=== PATIENT | male | born 1950 | race Caucasian/White ===

== ENCOUNTER 2019-11-01 17:59 | Emergency (ER) | payer OTHER, MEDICARE ==
[~2019-11-01] VITALS: Ht 172.7 cm; Wt 68.6 kg
[2019-11-01 19:52] LABS: BASOPHILS % (AUTO) 0.2 % (0-1); EOSINOPHILS % (AUTO) 0.1 % (0-6); HEMATOCRIT 51.4 % (42.0-52.0); HEMOGLOBIN 17.2 g/dl (14.0-17.9); MEAN CORPUSCULAR HEMOGLOBIN 30.5 PG (27.0-31.0); MEAN CORPUSCULAR HGB CONC 33.4 g/dL (33.0-36.5); MEAN CORPUSCULAR VOLUME 91.3 FL (78-98); MEAN PLATELET VOLUME 8.7 FL (7.4-10.4); MONOCYTES # (AUTO) 1.5 X10'3 (0-0.9); MONOCYTES % (AUTO) 7.2 % (2-12); NEUTROPHILS # (AUTO) 16.7 X10'3 (1.8-7.7); NEUTROPHILS % (AUTO) 82.5 % (42-75); PLATELET COUNT 377 X10'3 (140-440); RED BLOOD COUNT 5.63 X10'6 (4.70-6.10); WHITE BLOOD COUNT 20.3 X10'3 (4.5-11.0)
[2019-11-01 20:17] LABS: ALANINE AMINOTRANSFERASE 27 U/L (12-78); ALBUMIN 3.8 G/DL (3.4-5.0); ALBUMIN/GLOBULIN RATIO 1.1 (1.1-1.5); ALKALINE PHOSPHATASE 68 IU/L (46-116); ANION GAP 14 (8-16); ASPARTATE AMINO TRANSFERASE 12 U/L (10-37); BILIRUBIN,TOTAL 0.6 MG/DL (0.1-1.0); BLOOD UREA NITROGEN 20 MG/DL (7-18); BUN/CREATININE RATIO 22.5 (5.4-32.0); CALCIUM 9.1 MG/DL (8.5-10.1); CHLORIDE 97 MMOL/L (99-107); CREATININE 0.89 MG/DL (0.60-1.10); GLUCOSE 289 MG/DL (70-104); LIPASE 144 U/L (73-393); SODIUM 134 MMOL/L (135-145); TOTAL CARBON DIOXIDE 23.2 MMOL/L (24-32); TOTAL PROTEIN 7.2 G/DL (6.4-8.2); eGFR 85 ML/MIN
--- NOTE | 2019-11-01 20:43 | NUR ---
PT STATES HE STILL CAN'T VOID AFTER THREE CUPS OF WATER. GAVE PT URINE CUP AND SHOWED HIM WE NEED A VERY SMALL SAMPLE. HE STATED HE WILL TRY AGAIN
[2019-11-01 21:02] LABS: CLARITY,URINE CLEAR (Clear); COLOR,URINE YELLOW (Yellow); GLUCOSE, URINE 500 mg/dl (Neg); KETONES,URINE >=80 mg/dl (Neg); LEUKOCYTE ESTERASE ,URINE NEGATIVE (Neg); NITRITES, URINE NEGATIVE (Neg); OCCULT BLOOD,URINE TRACE-INTACT (Neg); PROTEIN,URINE 30 mg/dl (Neg)
[2019-11-01 21:05] LABS: UA COLLECTION TYPE CLN CATCH MIDSTREAM
[2019-11-01 21:07] LABS: BACTERIA,URINE NONE SEEN /HPF (Neg); RBC,URINE 0-2 /HPF (0-2); SQUAMOUS EPITHELIAL CELL,UR FEW /LPF (FEW); WBC,URINE 0-4 /HPF (0-4)
[2019-11-01] MEDS ORDERED: normal saline 1000ML IV soln IVB ONE ×2 (21:15→22:00)
[2019-11-01] MEDS ORDERED: iohexol 300mg/ml 100ml inj. ONE (21:19)
[2019-11-01] MEDS ORDERED: morphine 4 MG/ML inj SYRINge IV ONE (21:45)
[2019-11-01] MEDS ORDERED: ondansetron/PF 4mg/2ml inj IV ONE (21:45)
[2019-11-01] MEDS ORDERED: morphine 10mg/ml inj. IV ONE (21:50)
[2019-11-01] MEDS ORDERED: ONDA4TAB6 PO (22:46)
[2019-11-01] MEDS ORDERED: DICY10CA88 PO (22:46)
[2019-11-01] MEDS ORDERED: famotidine 20mg tablet PO ONE (22:55)
[2019-11-01] MEDS ORDERED: dicyclomine 10 MG capsule PO ONE (22:55)
[2019-11-01] MEDS ORDERED: mag hydrox/Alum hydrox/simeth 30ml oral suspension PO ONE (22:55)
[2019-11-01] MEDS ORDERED: MAG355OR18 PO (23:56)
[2019-11-02 00:09] VITALS: BP 151/74
== END 2019-11-02 00:11 | disposition home or self-care (01) ==
LOC: ER 18:00
DX: R10.30 Lower abdominal pain, unspecified (principal); R11.2 Nausea with vomiting, unspecified; E11.9 Type 2 diabetes mellitus without complications; E03.9 Hypothyroidism, unspecified; M19.90 Unspecified osteoarthritis, unspecified site; F17.200 Nicotine dependence, unspecified, uncomplicated; Z98.890 Other specified postprocedural states; Z79.899 Other long term (current) drug therapy
CPT/HCPCS: 36415; 74177; 80053; 81001; 83690; 85025; 96361; 96374; 96375; 99285; J2270; J2405; J7030; Q9967

== ENCOUNTER 2019-11-11 06:06 | Emergency (ER) | payer OTHER, MEDICARE ==
[~2019-11-11] VITALS: Ht 172.7 cm; Wt 69.1 kg
[~2019-11-11 06:06] MED LIST: DICY10CA88 PO; MAG355OR18 PO; ONDA4TAB6 PO
[2019-11-11] MEDS ORDERED: mag hydrox/Alum hydrox/simeth 30ml oral suspension PO ONE ×2 (06:30→08:05)
[2019-11-11] MEDS ORDERED: normal saline 1000ml 1,000 ML IV ONE ×2 (06:30→07:10)
[2019-11-11] MEDS ORDERED: pantoprazole 40 MG vial IV ONE (06:30)
[2019-11-11] MEDS ORDERED: LIDOcaine Viscous 15ml cup MM ONE (06:30)
[2019-11-11] MEDS ORDERED: famotidine/PF 10 mg/ml inj IV ONE (06:30)
[2019-11-11] MEDS ORDERED: ondansetron/PF 4mg/2ml inj IV ONE (06:30)
[2019-11-11 06:36] LABS: BASOPHILS # (AUTO) 0.1 X10'3 (0-0.2); BASOPHILS % (AUTO) 0.3 % (0-1); EOSINOPHILS % (AUTO) 0 % (0-6); HEMATOCRIT 52.1 % (42.0-52.0); HEMOGLOBIN 17.5 g/dl (14.0-17.9); LYMPHOCYTES # (AUTO) 1.9 X10'3 (1.1-4.8); MEAN CORPUSCULAR HEMOGLOBIN 31.2 PG (27.0-31.0); MEAN CORPUSCULAR HGB CONC 33.5 g/dL (33.0-36.5); MEAN CORPUSCULAR VOLUME 93.1 FL (78-98); MEAN PLATELET VOLUME 8.4 FL (7.4-10.4); MONOCYTES # (AUTO) 1.2 X10'3 (0-0.9); MONOCYTES % (AUTO) 6.2 % (2-12); NEUTROPHILS # (AUTO) 15.6 X10'3 (1.8-7.7); NEUTROPHILS % (AUTO) 83.5 % (42-75); PLATELET COUNT 358 X10'3 (140-440); WHITE BLOOD COUNT 18.7 X10'3 (4.5-11.0)
[2019-11-11 06:48] LABS: ALANINE AMINOTRANSFERASE 35 U/L (12-78); ALBUMIN 4.3 G/DL (3.4-5.0); ALBUMIN/GLOBULIN RATIO 1.1 (1.1-1.5); ALKALINE PHOSPHATASE 80 IU/L (46-116); ANION GAP 18 (8-16); ASPARTATE AMINO TRANSFERASE 14 U/L (10-37); BILIRUBIN,TOTAL 0.7 MG/DL (0.1-1.0); BLOOD UREA NITROGEN 25 MG/DL (7-18); BUN/CREATININE RATIO 20.8 (5.4-32.0); CALCIUM 9.7 MG/DL (8.5-10.1); CHLORIDE 95 MMOL/L (99-107); GLUCOSE 249 MG/DL (70-104); SODIUM 136 MMOL/L (135-145); TOTAL CARBON DIOXIDE 23.1 MMOL/L (24-32); TOTAL PROTEIN 8.2 G/DL (6.4-8.2); eGFR 60 ML/MIN
[2019-11-11 06:50] LABS: LIPASE 465 U/L (73-393); TROPONIN I < 0.04 NG/ML (0.0-0.05)
[2019-11-11] MEDS ORDERED: insulin regular, human 10 units/0.1 ml syringe IV ONE (07:10)
[2019-11-11] MEDS ORDERED: insulin regular, human U-100 3ml vial - multi-dose IV ONE (07:15)
[2019-11-11] MEDS ORDERED: PANT-47 PO (08:06)
[2019-11-11] MEDS ORDERED: MAG355OR18 PO (08:06)
[2019-11-11 08:41] VITALS: BP 141/65
== END 2019-11-11 08:50 | disposition home or self-care (01) ==
LOC: ER 06:07
DX: K29.70 Gastritis, unspecified, without bleeding (principal); E11.9 Type 2 diabetes mellitus without complications; E03.9 Hypothyroidism, unspecified; M19.90 Unspecified osteoarthritis, unspecified site; R11.2 Nausea with vomiting, unspecified; Z98.890 Other specified postprocedural states; Z79.899 Other long term (current) drug therapy
CPT/HCPCS: 36415; 74176; 76700; 80053; 82948; 83690; 84484; 85025; 96361; 96374; 96375; 99285; C9113; J2405; J3490; J7030; J1815

== ENCOUNTER 2019-12-10 16:52 | Emergency (ER) | payer OTHER, MEDICARE ==
[~2019-12-10] VITALS: Ht 172.7 cm; Wt 148.0 kg
[~2019-12-10 16:52] MED LIST changes: +PANT-47 PO
[2019-12-10 18:52] LABS: BASOPHILS % (AUTO) 0.3 % (0-1); EOSINOPHILS # (AUTO) 0.1 X10'3 (0-0.9); EOSINOPHILS % (AUTO) 0.9 % (0-6); HEMATOCRIT 52.9 % (42.0-52.0); HEMOGLOBIN 17.6 g/dl (14.0-17.9); LYMPHOCYTES # (AUTO) 2.1 X10'3 (1.1-4.8); LYMPHOCYTES % (AUTO) 13.2 % (21-51); MEAN CORPUSCULAR HEMOGLOBIN 30.4 PG (27.0-31.0); MEAN CORPUSCULAR HGB CONC 33.2 g/dL (33.0-36.5); MEAN CORPUSCULAR VOLUME 91.7 FL (78-98); MONOCYTES # (AUTO) 1.2 X10'3 (0-0.9); MONOCYTES % (AUTO) 7.5 % (2-12); NEUTROPHILS # (AUTO) 12.1 X10'3 (1.8-7.7); NEUTROPHILS % (AUTO) 78.1 % (42-75); PLATELET COUNT 286 X10'3 (140-440); RED BLOOD COUNT 5.77 X10'6 (4.70-6.10); RED CELL DISTRIBUTION WIDTH 13.6 % (11.5-14.5); WHITE BLOOD COUNT 15.5 X10'3 (4.5-11.0)
[2019-12-10 19:10] LABS: ALANINE AMINOTRANSFERASE 28 U/L (12-78); ALBUMIN 4.7 G/DL (3.4-5.0); ALBUMIN/GLOBULIN RATIO 1.2 (1.1-1.5); ALKALINE PHOSPHATASE 79 IU/L (46-116); ANION GAP 13 (8-16); ASPARTATE AMINO TRANSFERASE 17 U/L (10-37); BILIRUBIN,TOTAL 0.8 MG/DL (0.1-1.0); BLOOD UREA NITROGEN 24 MG/DL (7-18); BUN/CREATININE RATIO 25.8 (5.4-32.0); CALCIUM 9.2 MG/DL (8.5-10.1); CHLORIDE 99 MMOL/L (99-107); CREATININE 0.93 MG/DL (0.60-1.10); GLUCOSE 154 MG/DL (70-104); LIPASE 155 U/L (73-393); POTASSIUM 4.3 MMOL/L (3.5-5.1); SODIUM 137 MMOL/L (135-145); TOTAL CARBON DIOXIDE 24.7 MMOL/L (24-32); TOTAL PROTEIN 8.5 G/DL (6.4-8.2); eGFR 80 ML/MIN
[2019-12-10] MEDS ORDERED: famotidine 20mg tablet PO ONE (20:20)
[2019-12-10] MEDS ORDERED: mag hydrox/Alum hydrox/simeth 30ml oral suspension PO ONE (20:20)
[2019-12-10] MEDS ORDERED: LIDOcaine Viscous 15ml cup MM ONE (20:20)
[2019-12-10] MEDS ORDERED: ondansetron/PF 4mg/2ml inj IV ONE (20:45)
[2019-12-10] MEDS ORDERED: famotidine/PF 10 mg/ml inj IV ONE (21:45)
[2019-12-10] MEDS ORDERED: PANT-47 PO (21:45)
[2019-12-10] MEDS ORDERED: SUCR1TAB34 PO (21:45)
[2019-12-10] MEDS ORDERED: proCHLORperazine 10 MG/2 ml inj IV ONE (21:45)
[2019-12-10 21:48] LABS: CLARITY,URINE CLEAR (Clear); COLOR,URINE YELLOW (Yellow); GLUCOSE, URINE >=1000 mg/dl (Neg); KETONES,URINE >=80 mg/dl (Neg); LEUKOCYTE ESTERASE ,URINE NEGATIVE (Neg); NITRITES, URINE NEGATIVE (Neg); OCCULT BLOOD,URINE TRACE-INTACT (Neg); PROTEIN,URINE TRACE mg/dl (Neg); UROBILINOGEN,URINE 0.2 E.U/dL (0.2-1.0)
[2019-12-10 21:50] LABS: UA COLLECTION TYPE CLN CATCH MIDSTREAM
[2019-12-10 21:54] LABS: BACTERIA,URINE NONE SEEN /HPF (Neg); RBC,URINE 0-2 /HPF (0-2); SQUAMOUS EPITHELIAL CELL,UR FEW /LPF (FEW); WBC,URINE NONE SEEN /HPF (0-4)
[2019-12-10 22:14] VITALS: BP 110/70
== END 2019-12-10 22:27 | disposition home or self-care (01) ==
LOC: ER 16:52
DX: K29.70 Gastritis, unspecified, without bleeding (principal); R11.2 Nausea with vomiting, unspecified; E11.9 Type 2 diabetes mellitus without complications; E03.9 Hypothyroidism, unspecified; M19.90 Unspecified osteoarthritis, unspecified site; Z98.890 Other specified postprocedural states; Z79.899 Other long term (current) drug therapy
CPT/HCPCS: 36415; 80053; 81001; 83690; 85025; 96374; 96375; 99285; J0780; J2405; J3490

== ENCOUNTER 2024-02-22 10:11 | Emergency (ER) | payer OTHER, MEDICARE ==
[~2024-02-22] VITALS: Ht 172.7 cm; Wt 66.8 kg
[~2024-02-22 10:11] MED LIST changes: -MAG355OR18 PO; +SUCR1TAB34 PO
[2024-02-22 10:45] LABS: BASOPHILS # (AUTO) 0.1 X10'3 (0-0.2); BASOPHILS % (AUTO) 0.5 % (0-1); EOSINOPHILS # (AUTO) 0.1 X10'3 (0-0.9); EOSINOPHILS % (AUTO) 1.1 % (0-6); HEMATOCRIT 47.2 % (42.0-52.0); HEMOGLOBIN 15.6 g/dl (14.0-17.9); LYMPHOCYTES # (AUTO) 2.9 X10'3 (1.1-4.8); MEAN CORPUSCULAR HEMOGLOBIN 30.4 PG (27.0-31.0); MEAN CORPUSCULAR HGB CONC 33.1 g/dL (33.0-36.5); MEAN CORPUSCULAR VOLUME 91.7 FL (78-98); MEAN PLATELET VOLUME 8.6 FL (7.4-10.4); MONOCYTES % (AUTO) 8.7 % (2-12); NEUTROPHILS # (AUTO) 7.9 X10'3 (1.8-7.7); NEUTROPHILS % (AUTO) 65.7 % (42-75); PLATELET COUNT 318 X10'3 (140-440); RED BLOOD COUNT 5.15 X10'6 (4.70-6.10); RED CELL DISTRIBUTION WIDTH 13.7 % (11.5-14.5)
[2024-02-22 11:00] LABS: ALANINE AMINOTRANSFERASE 29 U/L (12-78); ALBUMIN 3.8 G/DL (3.4-5.0); ALBUMIN/GLOBULIN RATIO 1.1 (1.1-1.5); ALKALINE PHOSPHATASE 75 IU/L (46-116); ANION GAP 11 (8-16); ASPARTATE AMINO TRANSFERASE 13 U/L (10-37); BILIRUBIN,TOTAL 0.6 MG/DL (0.1-1.0); BLOOD UREA NITROGEN 11 MG/DL (7-18); BUN/CREATININE RATIO 13.4 (10.0-20.0); CALCIUM 9.2 MG/DL (8.5-10.1); CHLORIDE 99 MMOL/L (99-107); CREATININE 0.82 MG/DL (0.60-1.10); GLUCOSE 285 MG/DL (70-104); LIPASE 44 U/L (16-77); POTASSIUM 4.3 MMOL/L (3.5-5.1); SODIUM 136 MMOL/L (135-145); TOTAL CARBON DIOXIDE 25.7 MMOL/L (24-32); TOTAL PROTEIN 7.3 G/DL (6.4-8.2); eCRCL 75 ML/MIN; eGFR > 90 ML/MIN
[2024-02-22 12:54] LABS: BILIRUBIN,URINE NEGATIVE (Neg); CLARITY,URINE SLIGHTLY CLOUDY (Clear); COLOR,URINE YELLOW (Yellow); GLUCOSE, URINE 500 mg/dl (Neg); KETONES,URINE 15 mg/dl (Neg); LEUKOCYTE ESTERASE ,URINE NEGATIVE (Neg); NITRITES, URINE NEGATIVE (Neg); OCCULT BLOOD,URINE NEGATIVE (Neg); PH,URINE 5.5 (4.8-8.0); PROTEIN,URINE 100 mg/dl (Neg); UROBILINOGEN,URINE 0.2 E.U/dL (0.2-1.0)
[2024-02-22 12:59] LABS: UA COLLECTION TYPE VOIDED
[2024-02-22 13:01] LABS: MUCUS STRANDS MANY /LPF (Neg); SQUAMOUS EPITHELIAL CELL,UR FEW /LPF (FEW)
[2024-02-22 13:03] LABS: AMORPHOUS URATES 1+; BACTERIA,URINE FEW /HPF (Neg); WBC,URINE 0-4 /HPF (0-4)
[2024-02-22] MEDS: mag hydrox/Alum hydrox/simeth 30ml oral suspension PO ONE (14:40)
[2024-02-22] MEDS: LIDOcaine 2% Viscous 15ml cup MM PRN (14:40)
[2024-02-22] MEDS: ondansetron/PF 4mg/2ml inj IV ONE (14:41)
[2024-02-22] MEDS: morphine 4 MG/ML inj SYRINge IV ONE (14:41)
[2024-02-22] MEDS: normal saline 1000ML IV soln IVB ONE (14:41)
[2024-02-22 15:31] VITALS: BP 145/78; PULSE 79; RESP 16; TEMP 98.4; O2SAT 96
[2024-02-22] MEDS ORDERED: OMEP40CA21 PO (15:37)
== END 2024-02-22 15:38 | disposition home or self-care (01) ==
LOC: ER 10:11
DX: R10.84 Generalized abdominal pain (principal); L98.498 Non-pressure chronic ulcer of skin of other sites with other specified severity; E11.9 Type 2 diabetes mellitus without complications; E03.9 Hypothyroidism, unspecified; M19.90 Unspecified osteoarthritis, unspecified site; Z98.890 Other specified postprocedural states; Z79.899 Other long term (current) drug therapy
CPT/HCPCS: 36415; 74176; 80053; 81001; 83690; 85025; 96361; 96374; 96375; 99285; J2270; J2405; J7030; 99284

== ENCOUNTER 2025-01-01 11:13 | Inpatient (IN) | payer OTHER, MEDICARE ==
[~2025-01-01] VITALS: Ht 172.7 cm; Wt 70.0 kg
[2025-01-01] VITALS (14 sets, daily range): BP systolic 78–165; BP diastolic 44–96; PULSE 75–126; RESP 14–20; O2SAT 89–100
[~2025-01-01 11:13] MED LIST changes: +LIDOcaine 2% (20 mg/ml) 5ml cardiac syringe ONE; +adenosine 3mg/ml 2ml vial IV ONE; +calcium chloride 100 MG/1 ML inj IV ONE; +dextrose 50%-water 50ml dispensing syringe IV ONE; +epiNEPHrine 0.1mg/ml 10ml syringe ONE; +etomidate 2mg/ml inj. ONE; +naloxone 2mg/2ml inj ONE; +potassium Cl 2 mEq/ml inj IV ONE; +rocuronium 10mg/ml inj IV ONE; +sod chloride 0.9% 10ml flush syringe IV ONE
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
[2025-01-01 11:59] LABS: MEAN PLATELET VOLUME 8.7 FL (7.4-10.4); RED CELL DISTRIBUTION WIDTH 14.0 % (11.5-14.5)
[2025-01-01 12:05] LABS: CREATININE 2.84 MG/DL (0.60-1.10); TOTAL CARBON DIOXIDE 16.4 MMOL/L (24-32); eCRCL 22 ML/MIN; eGFR 22 ML/MIN
[2025-01-01] MEDS ORDERED: dextrose 50%-water 50ml dispensing syringe IV PRN (12:20)
[2025-01-01] MEDS: normal saline 1000ml 1,000 ML IV ONE ×2 (12:42→12:43)
[2025-01-01] MEDS ORDERED: magnesium Cl slow-release 64mg tablet PO PRN (12:45)
[2025-01-01] MEDS ORDERED: potassium Cl 20 mEq SR tablet PO PRN (12:45)
[2025-01-01] MEDS ORDERED: magnesium sulf-water 2g/50mL 50 ML IV PRN (12:45)
[2025-01-01] MEDS ORDERED: potassium Cl 40MEQ/1/2NS 520ml 520 ML IV PRN (12:45)
[2025-01-01] MEDS ORDERED: magnesium sulf-water 4G/100mL 100 ML IV PRN (12:45)
[2025-01-01] MEDS: INSULIN LISPRO 100 UNIT/ML INSULN.PEN MULTI-DOSE SQ SCH (13:00)
[2025-01-01 13:05] LABS: PHOSPHORUS 3.3 MG/DL (2.3-4.5)
[2025-01-01] MEDS: fentaNYL/PF 50MCG/1 ML 2ML syringe IV ONE (13:12)
[2025-01-01] MEDS: potassium Cl 20 mEq SR tablet PO PRN (13:14)
[2025-01-01] MEDS: ringers solution, lacted 1,000 ML IV SCH ×2 (13:20→20:48)
[2025-01-01] MEDS: Insulin Reg/NS 100units/100mL 100 ML IV SCH (13:42)
[2025-01-01] MEDS: etomidate 2mg/ml inj. IV ONE (14:43)
[2025-01-01] MEDS: rocuronium 10mg/ml inj IV ONE (14:44)
[2025-01-01] MEDS ORDERED: propofol 1000mg/100ml bottle 100 ML IV SCH (14:50)
[2025-01-01] MEDS: ringers solution, lacted 1,000 ML IV ONE ×4 (14:56→16:10)
[2025-01-01] MEDS: propofol 1000mg/100ml bottle 100 ML IV ONE (14:56)
[2025-01-01] MEDS: propofol 1000mg/100ml bottle 100 ML IV SCH (14:57)
--- NOTE | 2025-01-01 14:57 | ELECTROCARDIOGRAPH REPORT ---
[facility] Test Date: 2025-01-01 Test Time: 14:51:45 Pat Name: BOB QUINN Department: EMERGENCY ROOM Room: [facility] 2010 Gender: M [employer]: TYREL : 1950 Requested By: MAISHA GONZALEZ Order Number: [id number] Reading MD: Dr. DEREK Dunlap Measurements Intervals [place] Rate: 127 P: 46 MO: 160 QRS: 1 QRSD: 98 T: 182 QT: 341 QTc: 496 Interpretive Statements Sinus tachycardia Ventricular premature complex Borderline low voltage, extremity leads Abnormal R-wave progression, early transition Repol abnrm suggests ischemia, diffuse leads Electronically Signed On 01-02-2025 14:42:[address] DEREK Dunlap Please click the below link to view image of tracing.
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
[2025-01-01 15:20] LABS: ABG BASE EXCESS -25.4 mmol/L (-2.0-3.0); ABG HCO3 10.7 mmol/L (21.0-28.0); ABG OXYGEN SATURATION 99.7 % (94.0-98.0); ABG PCO2 (T) 72.0 mmHg (35.0-48.0); ABG PH (T) 6.791 (7.350-7.450); ABG PO2 (T) 504.2 mmHg (83.0-108.0); ALLEN'S TEST POSITIVE; FCOHb 0.3 % (0.5-1.5); FHHb 0.3 % (0.0-5.0); FIO2 100.0 mmHg/%; FMetHb 0.4 % (0.0-1.5); FO2Hb 99.0 % (94.0-98.0); MODE VENT - AC PRVC; PATIENT TEMPERATURE 37.0; PEEP 5 cm H2O; RESPIRATORY RATE 16 b/min; TIDAL VOLUME 350 mL; TOTAL HEMOGLOBIN 16.1 G/dl (13.5-17.5)
--- NOTE | 2025-01-01 15:20 | RADIOLOGY REPORT ---
EXAM: DI CHEST,SINGLE VIEW Indication: POST INTUBATION Technique: Single frontal view of the chest was obtained Comparison: None FINDINGS: Lines and Tubes: Endotracheal tube projects 3.7 cm above the janelle. Lungs: No focal consolidation. Pleura: No effusion. No pneumothorax. Cardiomediastinal contours: Unremarkable. Atherosclerotic vascular calcifications of the thoracic aorta are noted. Bones: No acute osseous abnormality. IMPRESSION: No acute cardiopulmonary disease.
--- NOTE | 2025-01-01 15:24 | HISTORY AND PHYSICAL ---
History & Physical Providers to Chief complaint, nausea vomiting associated with abdominal pain, chronic constipation exacerbation ~ History of Present Illness Reason for Admit\Complaint: As above History of Present Illness This is a 74 years old male with history of diabetes mellitus type 2, chronic kidney disease, hypothyroidism, history of thyroid cancer, osteoarthritis, hernia, hypoalbuminemia, hepatic steatosis, history of peptic ulcer disease, history of GERD, esophagitis BPH a right knee TKA, bilateral pleural effusion small, chronic constipation, presented today to emergency department chief complaint nausea vomiting associated with abdominal pain; in addition this is the patient who presented to the ED due to abdominal pain and nausea vomiting. He reported he had intermittent abdominal pain, last one was four months ago which subside without any hospitalization and medication, however this time he reported abdominal pain started four days ago, location was in lower abdomen, and was constant and severity 10 of 10 and now he reported generalized abdominal pain and associated with nausea vomiting. He went to [facility] last evening and received medication for nausea and pain however his symptoms did not subside He denied chest pain shortness of breaths, fever or chills, changing in urinary habits , he admits on chronic constipation in exacerbation for the last two weeks associated with unable to pass flatus currently, in emergency department he was evaluated by physician was diagnosed with DKA, acute pancreatitis, perforated viscous decision was made to admit patient for further evaluation and treatment. No additional complaint or concern. Started on DKA protocol including IV insulin infusion, antibiotics, and correct electrolytes. Allergies: Coded Allergies: No Known Allergies (Unverified , 02/22/24) Active prescriptions I reviewed reconciled Home Medications Home Medications Active Carafate (Sucralfate) 1 Gm Tablet 1 Tab PO Q6H PRN 30 Days PROTONIX tablet (Pantoprazole Sodium) 40 Mg Tablet.dr 1 Tab PO DAILY 30 Days PROTONIX tablet (Pantoprazole Sodium) 40 Mg Tablet.dr 1 Tab PO DAILY 30 Days Bentyl* (Dicyclomine HCl) 10 Mg Capsule 1 Cap PO Q12H 5 Days Zofran (Ondansetron Hcl) 4 Mg Tablet 1 Tab PO Q12H PRN 5 Days Past Medical History Past Medical History As in HPI Past Surgical History Surgical History Comment As in HPI has history of abdominal surgery as well Past Social History Social History Comment Deny illicit drug abuse tobacco alcohol use live with the family good social support Health Maintenance Health Maintenance Noncontributory ROS ROS I review of systems Constitutional : no fever , no chills, or weakness. No diaphoresis. Allergic/Immunologic, no lymphadenopathy, no hives, no skin eruptions. Eyes, no recent visual changes, no eye pain, no photophobia. Ears, nose, mouth, throat, no sore throat, no nosebleed, no ear pain. Cardiovascular, no palpitations, skipped beats, chest pain, no peripheral edema, Respiratory, no dyspnea, orthopnea, cough, hemoptysis, chest wall pain. Gastrointestinal, positive for abdominal pain, nausea, vomiting, constipation , no diarrhea. : no dysuria, hematuria, pelvic pain, urethral d/c. Endocrine, no polyuria, polydipsia, recent unintentional weight gain or loss. Hematologic/Lymphatic, no petechiae, no enlarged lymph nodes, no bone pain. Integumentary, no rash, no skin lesions, Musculoskeletal, no muscle aches, or pain, no muscle cramps, no recent change in gait Neurological, no dizziness, no headache, no syncope, no paresthesia. Psychiatric, no delusions, visual hallucinations, or hearing hallucinations. ROS - in rest is as in HPI. Exam Vitals: Vital Signs Date Time Temp Pulse Resp B/P (MAP) Pulse Ox O2 Delivery O2 Flow Rate FiO2 01/01/25 15:05 126 16 100 100 01/01/25 14:57 142/83 01/01/25 13:43 0 01/01/25 11:19 97.7 Vital signs, stable ,afebrile. Pulse Oximetry reflects adequate oxygenation. BMI is 23, weight 70 kg General: well developed, well nourished. Awake , alert, and oriented x4, resting comfortably in the bed, in no acute distress . Skin: Warm, dry, no pallor, no rash or petechiae. HEENT: Atraumatic, normocephalic, EOMI, anicteric sclera B; pink conjunctiva; PERRLA, normal oropharynx, moist oral and nasal mucosa. Tympanic membrane , nose , throat clear. Neck: Trachea midline. Supple, full range of motion, no JVD, bruit , hepatojugular reflex , lymphadenopathy or masses, or other lesions Cardiac: Regular rhythm, regular rate no murmurs, rubs, or gallops. Normal S1 and S2, no S3 noticed. PMI is normal. Respiratory: Equal breath sounds bilaterally, no tachypnea; lungs clear to auscultation bilaterally, no wheezing ,rub or rales, or crackles. Chest wall is symmetric and without deformity. No signs of trauma. Chest wall is nontender. No signs of respiratory distress. Resonance is normal upon percussion bilaterally. Gastrointestinal: Abdomen symmetric, distended, soft, tender to palpation diffusely, active bowel sounds x4 quadrant. no hepatosplenomegaly , no masses , no bruit, no flank pain bilaterally. No voluntary guarding, rebound, or rigidity. No tenderness to percussion. No pulsatile masses. Equal femoral pulses. No Linn's sign or McBurney point tenderness. Back; no CVA tenderness bilaterally, no deformities. Neck and back are without deformity as well. No tenderness noted on palpation of the spinous processes. Spinous processes are midline. Cervical, thoracic, and lumbar paraspinal muscles are not tender and are without spasm. : normal external genitalia, without lesions, swelling, masses or tenderness. Musculoskeletal: Extremities, normal range of motion, non-tender, muscle strength 5/5 x 4. Negative Homans signs bilaterally on lower extremity. Distal pulses full symmetrical, no clubbing, cyanosis , edema. Neurological: Speech is clear, alert, and oriented x 4. No motor or sensory deficit, deep tendon reflexes normal, cerebellar intact. Cranial nerves II-XII intact. Psych: Alert and or appropriate, normal affect. Vascular: Good distal pulses, which are equal x4; capillary refill less than 2 seconds. Lymphatic, no lymphadenopathy. Diagnostic Data Last Recorded Lab Results: 01/01/25 1136 01/01/25 1136 Advance Care Planning Advanced Care plannin - 30 Minutes Additional Plan Assessment History of peptic ulcer disease, esophagitis, GERD, in exacerbation Perforated viscus Sepsis Diabetes mellitus type 2 poor control DKA Acute pancreatitis Chronic constipation in exacerbation Hyponatremia Acute renal failure Additional comorbidities, hypoalbuminemia, hepatic steatosis, BPH, bilateral pleural effusion trace, history of right knee TKA, history of abdominal surgery, chronic kidney disease, hypothyroidism, history of thyroid cancer, ventral hernia, hypoalbuminemia, hepatic steatosis, Plan Correct electrolytes, IV fluids On DKA protocol IV insulin infusion Additional lab work pending IV antibiotics IV Protonix Antiemetics, pain control IV p.o. analgesics Reconciled home medications DVT gastropathy prophylaxis addressed Addendum, in emergency department patient developed acute cardiorespiratory arrest, ACL S protocol followed, patient achieved ROSC, intubated now, we will be transferred to ICU for further evaluation and treatment. Sepsis Screening Reassessment Date: Jan 01, 2025 Date of Service: Jan 01, 2025 Billing Provider: KAILYN GRIMES MD Common Visit Codes: 83366-[id number] INP/OBS CARE (HIGH) Secondary Visit Codes: 18338-[id number] CARE PLAN 30 MINUTES KAILYN GRIMES MD Jan 01, 2025 15:24
[2025-01-01] MEDS: CefTRIAXone/D5W-Rocephin 1gm 50 ML IV ONE (15:38)
[2025-01-01] MEDS: sodium bicarbonate (8.4%) 1 mEq/ml syringe IV ONE (15:40)
[2025-01-01] MEDS: ringers solution, lacted 1,000 ML IV STA (16:11)
[2025-01-01] MEDS: NORepinephrine 8mg/ 250ml NS 250 ML IV SCH (16:27)
[2025-01-01 16:48] LABS: BANDS% (MANUAL) 29 % (0-10); LYMPHOCYTES % (MANUAL) 18 % (21-51); METAMYLEOCYTES% (MANUAL) 2 % (0-0); MONOCYTES % (MANUAL) 6 % (2-12); NEUTROPHILS % (MANUAL) 44 % (42-75)
[2025-01-01 16:49] LABS: LARGE PLATELETS FEW; MYELOCYTES % (MANUAL) 1 % (0-0); PLATELET ESTIMATE NORMAL
[2025-01-01] MEDS ORDERED: heparin 10,000 units/1 ML INJ ONE (17:09)
[2025-01-01 17:36] LABS: MEAN PLATELET VOLUME 8.8 FL (7.4-10.4); RED CELL DISTRIBUTION WIDTH 14.1 % (11.5-14.5)
--- NOTE | 2025-01-01 17:37 | PROGRESS NOTE ---
Progress Note ID Providers to CC ~ Progress Note Progress Note: pt seen and examined-findings consistent with perforated viscus and ALI LLE post code-pt needs ex lap and LLE embolectomy-discussed procedure including risks/benefits/alternatives with SUN LEE MD Jan 01, 2025 17:37
[2025-01-01] MEDS ORDERED: vasoPRESSIN 20 units/ml inj. ONE (17:58)
[2025-01-01 18:01] LABS: CREATININE 2.03 MG/DL (0.60-1.10); TOTAL CARBON DIOXIDE 19.3 MMOL/L (24-32); eCRCL 30 ML/MIN; eGFR 32 ML/MIN
[2025-01-01] MEDS: VASOPRESSIN 20 UNITS/NS 100mL 100 ML IV SCH (18:05)
[2025-01-01] MEDS ORDERED: sodium bicarbonate 1 mEq/ml 50ml vial IV ONE (18:08)
[2025-01-01] MEDS ORDERED: rocuronium 10mg/ml inj IV ONE (18:08)
--- NOTE | 2025-01-01 18:24 | VASCULAR REPORT ---
Indication: Cold left foot Technique: Real- time ultrasound images of the left lower extremity with grayscale, color, and spectral wave Doppler. 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 Biphasic/triphasic waveform left SFA, popliteal artery. No flow left anterior tibial artery. Biphasic waveform left posterior tibial artery. Scattered atherosclerotic calcification disease. Peak systolic velocities are as follows (in cm/s): Left: Common femoral artery: 95 Profunda femoris: 32 Proximal superficial femoral: 55 Mid superficial femoral artery: 50 Distal superficial femoral artery: 33 Popliteal artery: 43 Posterior tibial artery: 10 Anterior tibial artery: No flow Possible reversal flow in the left peroneal artery. Impression: Occlusion of the left anterior tibial artery. Markedly decreased velocity left posterior tibial artery consistent with hemodynamically significant stenosis /occlusion. Correlate to exclude acute thromboembolic etiology given these findings.
[2025-01-01 18:33] LABS: ABG BASE EXCESS -5.2 mmol/L (-2.0-3.0); ABG HCO3 23.9 mmol/L (21.0-28.0); ABG OXYGEN SATURATION 99.4 % (94.0-98.0); ABG PCO2 (T) 58.7 mmHg (35.0-48.0); ABG PH (T) 7.217 (7.350-7.450); ABG PO2 (T) 213.3 mmHg (83.0-108.0); FCOHb 0.6 % (0.5-1.5); FHHb 0.6 % (0.0-5.0); FIO2 96.0 mmHg/%; FMetHb 0.3 % (0.0-1.5); FO2Hb 98.5 % (94.0-98.0); MODE or; PATIENT TEMPERATURE 35.0; TOTAL HEMOGLOBIN 12.8 G/dl (13.5-17.5)
[2025-01-01] MEDS: FENTANYL-0.9 % NACL/PF 100 ML IV SCH (18:42)
[2025-01-01] MEDS: FENTANYL-0.9 % NACL/PF 100 ML ONE (18:42)
[2025-01-01] MEDS ORDERED: albumin (Human) 5% 250ml 250 ML IV ONE (18:47)
[2025-01-01] MEDS ORDERED: midazolam 1 mg/ML 2ml injection ONE (18:58)
--- NOTE | 2025-01-01 19:24 | OPERATIVE REPORT ---
Operative Report Providers to CC ~ Date of Procedure: Jan 01, 2025 Pre-Operative Diagnosis: perforated viscus Post-Operative Diagnosis SAME as PRE-Op Procedure Performed ex lap/small bowel resection Surgeon: jimbo harris Anesthesiologist: Delia Lopez Type of Anesthesia: General Findings: perforated proximal jejunum/ischemic small bowel/extensive contamination Estimated Blood Loss: 200 ml Specimen Removed: proximl jejunum SUN LEE MD Jan 01, 2025 19:24
[2025-01-01 19:27] LABS: ABG BASE EXCESS -8.8 mmol/L (-2.0-3.0); ABG HCO3 19.4 mmol/L (21.0-28.0); ABG OXYGEN SATURATION 99.8 % (94.0-98.0); ABG PCO2 (T) 43.5 mmHg (35.0-48.0); ABG PH (T) 7.246 (7.350-7.450); ABG PO2 (T) 325.0 mmHg (83.0-108.0); FCOHb 0.7 % (0.5-1.5); FHHb 0.2 % (0.0-5.0); FIO2 80.0 mmHg/%; FMetHb 0.3 % (0.0-1.5); FO2Hb 98.8 % (94.0-98.0); MODE PRVC; PATIENT TEMPERATURE 33.4; PEEP 5 cm H2O; RESPIRATORY RATE 16 b/min; TIDAL VOLUME 550 mL; TOTAL HEMOGLOBIN 13.5 G/dl (13.5-17.5)
[2025-01-01 19:41] LABS: MEAN PLATELET VOLUME 8.1 FL (7.4-10.4); RED CELL DISTRIBUTION WIDTH 13.5 % (11.5-14.5)
[2025-01-01 19:48] LABS: INR 2.2 INR
--- NOTE | 2025-01-01 19:51 | RADIOLOGY REPORT ---
EXAM: DI CHEST,SINGLE VIEW HISTORY: return from OR TECHNIQUE: 1 view of the chest COMPARISON: DI CHEST,SINGLE VIEW on DOS: 01/01/25 FINDINGS/IMPRESSION: LUNGS: No pleural effusion, consolidation, or pneumothorax . Peripheral interstitial edema. MEDIASTINUM: Unremarkable BONES: No acute osseous abnormality OTHER: Endotracheal tube 4.3 cm above the janelle. Enteric tube and right central venous catheter unchanged
[2025-01-01 20:10] LABS: APTT 86 SECONDS (22-32)
[2025-01-01 20:11] LABS: CREATININE 1.79 MG/DL (0.60-1.10); PHOSPHORUS 2.8 MG/DL (2.3-4.5); TOTAL CARBON DIOXIDE 20.4 MMOL/L (24-32); eCRCL 35 ML/MIN; eGFR 37 ML/MIN
[2025-01-01] MEDS: albumin (Human) 5% 250ml 250 ML IV ONE ×2 (20:14→20:18)
[2025-01-01 20:37] LABS: BANDS% (MANUAL) 41.0 % (0-10); LYMPHOCYTES % (MANUAL) 30.0 % (21-51); METAMYLEOCYTES% (MANUAL) 2.0 % (0-0); MONOCYTES % (MANUAL) 10.0 % (2-12); NEUTROPHILS % (MANUAL) 17.0 % (42-75); PLATELET ESTIMATE NORMAL
[2025-01-01 20:40] LABS: ISTAT ANION GAP 13.0 (8-12); ISTAT BUN 31.0 mg/dL (7-18); ISTAT CL 104.0 mmol/L (99-107); ISTAT CREATININE 1.4 mg/dL (0.8-1.3); ISTAT GLUCOSE 130.0 mg/dL (70-104); ISTAT HGB 10.9 g/dl (14.0-17.9); ISTAT Hct 32.0 %PCV (42-52); ISTAT IONIZED CALCIUM 1.07 mmol/L (1.03-1.32); ISTAT NA 140.0 mmol/L (135-145); ISTAT TOTAL CO2 23.0 mmol/L (24-32); ISTAT eGFR 49.0 ML/MIN; POC BUN/CREATININE RATIO 22.1 (5.4-32.0)
[2025-01-01] MEDS: midazolam 100mg in NS 100ml 100 ML IV SCH (20:47)
[2025-01-01] MEDS: albumin (Human) 5% 250ml 250 ML IV PRN ×2 (20:47→22:49)
[2025-01-01 21:20] LABS: ISTAT K CONFIRMATION 2.9 mmol/L
[2025-01-01 21:28] LABS: ISTAT K 2.8 mmol/L (3.5-5.1)
[2025-01-01] MEDS: piperacillin/tazo 3.375gm/50ml 50 ML IV SCH (23:15)
[2025-01-02] VITALS (36 sets, daily range): BP systolic 89–178; BP diastolic 38–70; PULSE 82–139; RESP 18–27; O2SAT 89–100
[2025-01-02 00:20] LABS: ABG BASE EXCESS -10.8 mmol/L (-2.0-3.0); ABG HCO3 13.7 mmol/L (21.0-28.0); ABG OXYGEN SATURATION 92.2 % (94.0-98.0); ABG PCO2 (T) 26.4 mmHg (35.0-48.0); ABG PH (T) 7.332 (7.350-7.450); ABG PO2 (T) 67.6 mmHg (83.0-108.0); FCOHb 0.3 % (0.5-1.5); FHHb 7.8 % (0.0-5.0); FIO2 60.0 mmHg/%; FMetHb 0.3 % (0.0-1.5); FO2Hb 91.6 % (94.0-98.0); MODE VENT - SIMV; PATIENT TEMPERATURE 36.9; PEEP 5 cm H2O; RESPIRATORY RATE 18 b/min; TIDAL VOLUME 550 mL; TOTAL HEMOGLOBIN 10.5 G/dl (13.5-17.5)
[2025-01-02 00:41] LABS: MEAN PLATELET VOLUME 8.6 FL (7.4-10.4); RED CELL DISTRIBUTION WIDTH 13.0 % (11.5-14.5)
[2025-01-02] MEDS: ringers solution, lacted 1,000 ML IV SCH (03:12)
[2025-01-02 03:24] LABS: ABG BASE EXCESS -4.0 mmol/L (-2.0-3.0); ABG HCO3 21.1 mmol/L (21.0-28.0); ABG OXYGEN SATURATION 91.0 % (94.0-98.0); ABG PCO2 (T) 35.9 mmHg (35.0-48.0); ABG PH (T) 7.378 (7.350-7.450); ABG PO2 (T) 55.8 mmHg (83.0-108.0); FCOHb 0.6 % (0.5-1.5); FHHb 8.9 % (0.0-5.0); FIO2 55.0 mmHg/%; FMetHb 0.3 % (0.0-1.5); FO2Hb 90.2 % (94.0-98.0); MODE prvc; PATIENT TEMPERATURE 35.3; PEEP 5 cm H2O; RESPIRATORY RATE 18 b/min; TIDAL VOLUME 550 mL; TOTAL HEMOGLOBIN 12.0 G/dl (13.5-17.5)
--- NOTE | 2025-01-02 03:34 | OPERATIVE REPORT ---
DATE OF SURGERY: 01/01/2025 DICTATING PHYSICIAN: Dre Virk MD PREOPERATIVE DIAGNOSES: Perforated viscus with hypotension and sepsis. POSTOPERATIVE DIAGNOSES: Perforated viscus with hypotension and sepsis. PROCEDURES PERFORMED: Exploratory laparotomy. Small bowel resection. Colonic decompression. SURGEON: Dre Virk MD. VEHICLE BODY SANDER: Herman. ANESTHESIA: General/Dr. Mobley. DRAINS: Hernesto x1. INDICATIONS FOR OPERATION: A 74-year-old male who presented to the ER complaining of abdominal pain, lack of BM, apparently had a CAT scan, which revealed a perforated viscus. The patient coded in the ED. Required 6 minutes of CPR. Surgical intervention was subsequently requested. The patient was started on Levophed in the ER via peripheral IV to maintain blood pressure and taken to the OR emergently after discussion was had with the . INTRAOPERATIVE FINDINGS: The patient had a large hole in the anteromedial surface of the proximal jejunum just distal to the ligament of Treitz. Proximal small bowel is ischemic. Given the proximal small bowel ischemia, a decision was made for a planned second-look operation to establish GI continuity. DESCRIPTION OF PROCEDURE: The patient was placed supine on the operating table. After induction of general anesthesia, the patient required line placement per Anesthesia including a central line and arterial line. The abdomen was then prepped and draped. The abdomen was entered through midline incision to explore. There was some contamination in the peritoneal cavity. The colon was then carefully examined from the right colon to the distal sigmoid without evidence of perforation. A small colotomy was then made and the colon was decompressed and the colotomy was closed with TA30. The small bowel was then run through the Treitz to the ileocecal valve. There was a large hole in the anteromedial surface of the proximal jejunum distal to the ligament of Treitz. There was some patchy ischemia in the proximal jejunum as well extending distally. The splenic flexure was immobilized. The ligament of Treitz was divided for a short distance to facilitate ____ of the segment of bowel with perforation. The ____ was divided via a Endo-JOÃO proximally and a JOÃO 75 distally. ____. The small bowel again remained to have some patchy ischemia, but no evidence of serenity necrosis. ____ resection was done. He would be taken back for a planned second-look operation in 24 hours. The abdomen was irrigated with a large amount of antibiotic-containing solution. A drain was then placed through a separate stab incision. The skin was closed with #2-0 nylon with this patient having a planned second-look operation in 24 hours. A dressing was applied. The patient was transferred to the ICU in critical condition. Dre Virk MD TID: [id number] RECEIPT: [id number] KB/CATHERINE
--- NOTE | 2025-01-02 06:00 | RADIOLOGY REPORT ---
CHEST RADIOGRAPH Indication: eval ett/lines Technique: Single frontal view of the chest was obtained COMPARISON: DI CHEST,SINGLE VIEW on DOS: 01/01/25, DI CHEST,SINGLE VIEW on DOS: 01/01/25 FINDINGS: Lines and Tubes: Endotracheal tube, enteric catheter, and right central venous catheter are present and in satisfactory position. Lungs: Clear. Pleura: No effusion. No pneumothorax. Cardiomediastinal contours: Unremarkable. Bones: Unremarkable. IMPRESSION: Lines and tubes in satisfactory position. No significant interval change.
[2025-01-02 06:23] LABS: RED CELL DISTRIBUTION WIDTH 13.1 % (11.5-14.5)
[2025-01-02 06:26] LABS: MEAN PLATELET VOLUME 9.0 FL (7.4-10.4)
[2025-01-02 06:28] LABS: CREATININE 1.34 MG/DL (0.60-1.10); INR 2.3 INR; PHOSPHORUS 2.9 MG/DL (2.3-4.5); TOTAL CARBON DIOXIDE 23.2 MMOL/L (24-32); eCRCL 46 ML/MIN; eGFR 52 ML/MIN
[2025-01-02 06:46] LABS: APTT 122 SECONDS (22-32)
--- NOTE | 2025-01-02 06:51 | ELECTROCARDIOGRAPH REPORT ---
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 DEREK Dunlap Measurements Intervals Braddock Rate: 87 P: 0 AR: 0 QRS: 29 QRSD: 108 T: 27 QT: 380 QTc: 457 Interpretive Statements Accelerated junctional rhythm Incomplete left bundle branch block Low voltage, precordial leads Electronically Signed On 01-02-2025 14:41:[address] DEREK Dunlap Please click the below link to view image of tracing.
[2025-01-02] MEDS ORDERED: iohexol 350 MG/ML 50ML vial IV ONE (07:28)
[2025-01-02 08:47] LABS: PLATELET ESTIMATE NORMAL
[2025-01-02 08:58] LABS: BANDS% (MANUAL) 44.0 % (0-10); LYMPHOCYTES % (MANUAL) 33.0 % (21-51); METAMYLEOCYTES% (MANUAL) 4.0 % (0-0); MONOCYTES % (MANUAL) 5.0 % (2-12); NEUTROPHILS % (MANUAL) 14.0 % (42-75)
--- NOTE | 2025-01-02 09:23 | CONSULTATION ---
DATE OF CONSULTATION: 01/01/2025 DICTATING PHYSICIAN: Dre Virk MD REASON FOR CONSULTATION: Perforated viscus on CT scan. HISTORY OF PRESENT ILLNESS: The patient is a 74-year-old male with a history of diabetes, chronic kidney disease, hypothyroidism, thyroid cancer, osteoarthritis, peptic ulcer disease, and GERD. He presented to the ER with complaints of abdominal pain [facility] The patient reportedly had not had a bowel movement in 2 weeks. While in the ER, he had a large bowel movement and reportedly became bradycardic. Question pulseless, CPR was initiated. The patient had 2 rounds of epinephrine from the ER nurse as well as chest compressions and regained vital signs and was progressively intubated. Surgical evaluation was requested regarding the perforated viscus. The patient did not provide any additional history. His history was taken from the patient's who states he has no history of heart disease. No history of vascular disease. He has been not feeling well for the past few weeks. He has been able to do his activities of daily life without difficulty. PAST MEDICAL HISTORY: Significant for diabetes, chronic kidney disease, hypothyroidism, thyroid cancer, osteoarthritis, hepatic steatosis, peptic ulcer disease, history of GERD, esophagitis, BPH. PAST SURGICAL HISTORY: Includes right total knee replacement and umbilical hernia repair per his . HOME MEDICATIONS: Include Carafate, Protonix, Ventolin, Zofran. ALLERGIES: None. SOCIAL HISTORY: No tobacco or alcohol use. REVIEW OF SYSTEMS: Unobtainable. PHYSICAL EXAMINATION: GENERAL: Well-nourished, thin male, currently intubated, sedated with propofol and fentanyl. VITAL SIGNS: Blood pressure 90/60. Heart rate is 122. HEART: Heart exam is tachycardic. LUNGS: Diminished breath sounds bilaterally. ABDOMEN: Quite distended. He has palpable femoral pulses bilaterally. EXTREMITIES: Left leg is cool with diminished pedal pulses. LABORATORY DATA: Labs included WBC 4.1, hematocrit of 48, platelet count of 242, 29 bands in the differential. Chemistries from 11:30 include sodium 130, potassium 3.4, BUN and creatinine 42 and 2.8, glucose 606, magnesium 4.7. LFTs were unremarkable. Procalcitonin 37. Lactic acid level was 8.9 at 11:36 and increased to 12.9 at 02:45. Blood gas at 1514: PH of 7.69, PCO2 of 72, PO2 of 504. IMAGING STUDIES: CT abdomen and pelvis reveals a large amount of free fluid and free air consistent with perforated viscus and dilated colon. Ultrasound reveals occlusion of the left anterior tibia and decreased velocity of the left posterior tibial. IMPRESSION: * Acute abdomen secondary to perforated viscus. * Respiratory failure with severe respiratory acidosis. * Question of left leg ischemia. * Sepsis. * Diabetic ketoacidosis. * Chronic kidney disease. * Hypothyroidism. * Thyroid cancer. * Osteoarthritis. * Peptic ulcer disease. * History of gastroesophageal reflux disease. RECOMMENDATIONS: * Correction of respiratory acidosis. * IV antibiotics. * Emergent laparotomy. * Check cardiac echocardiogram. Dre Virk MD TID: [id number] RECEIPT: [id number] TAE/RAJINDER
--- NOTE | 2025-01-02 11:24 | RADIOLOGY REPORT ---
CLINICAL HISTORY: post code, poor neuro exam TECHNIQUE: Helical scanning was performed of the head from the skull base to the vertex. Multiplanar reconstructions were performed. This exam was performed according to our departmental dose optimization program. Up-to-date CT equipment and radiation dose reduction techniques are utilized as appropriate. CTDI 66 DLP 1283 COMPARISON: None FINDINGS: Evaluation is limited due to patient motion artifact. There is no evidence for acute intracranial hemorrhage, acute ischemic changes, mass, mass effect, or extra-axial fluid collection. There is no hydrocephalus or midline shift. There is no effacement of the cerebral sulci and basal subarachnoid cisterns. The kurtz-white matter differentiation is well maintained. The imaged paranasal sinuses are clear. IMPRESSION: Limited exam with no definite acute intracranial abnormality seen.
[2025-01-02] MEDS ORDERED: ACET325T55 PO (11:40)
[2025-01-02] MEDS ORDERED: ATOR10TA70 PO (11:40)
[2025-01-02] MEDS ORDERED: ONDA-243 PO (11:40)
[2025-01-02] MEDS ORDERED: ASPI81TA52 PO (11:40)
[2025-01-02] MEDS ORDERED: HYDR71PA TP (11:40)
[2025-01-02] MEDS ORDERED: GABA300C PO (11:40)
[2025-01-02] MEDS ORDERED: GLIP10TA18 PO (11:40)
[2025-01-02] MEDS ORDERED: SITA100T15 PO (11:40)
[2025-01-02] MEDS ORDERED: FLUT16SP BOTHNARES (11:40)
--- NOTE | 2025-01-02 13:51 | [facility] NEURO CONSULT REPORT ---
[facility] Procedure Note [facility] Procedure Note Consult [facility] Note # Demographics Consult Type: General Neurology Patient Location: Inpatient First Name: Dax Last Name: Rafat Date of : 1950 Age: 74 Gender: Male Facility: [facility] Time of Initial Page (): 01/02/2025 11:28 First Contact with Site (): 01/02/2025 11:28 # HPI Chief Complaint: - altered mental state History: 74M with DM, liver disease presented with abdominal pain and constipation, became bradycardic and lost his BP -> CPR with compressions, intubated. Down time for [address] abdomen showed a visceral perforation, went to OR for repair last night. # Exam Time of Exam (): 01/02/2025 13:44 Vitals: vital signs reviewed Mental Status: - comatose Language: Intubated Cranial Nerves: PERRL Chewing motions without apparent asymmetry Motor: Slight movement in all four extremities to noxious # Assessment Impression: - Encephalopathy Post-cardiac arrest Sepsis # Plan Other: - If patient has any neurological deterioration please call me back immediately Additional Recommendations: Initial management and evaluations: -Target MAP >80 if possible -maintain PaO2 >100 -maintain PaCO2 35-40 -Recommend core temperature probe -cEEG to assess for subclinical seizures (contact on-call neurophysiology). -consider paralytic as needed for EEG interpretation and treatment. -repeat NCCT at 24 hours, to determine catastrophic brain injury. -frequent neuro-checks by nursing staff Q1-2 hours. -maintain normothermia, consider cooling device if febrile. -continue to assess brainstem reflexes and motor movement. -Limit sedation, if able. -No contraindication for surgical procedures if necessary to treat septic process and improve changes of survival For further prognostication: -brain MRI if patient remains unconsciousness at 72 hours post arrest. (MRI changes are time dependent and an "early" MRI can be misleading). Disposition: continue admission # Logistics Attestation of consult completion: The patient is located at: [facility]. Facility staff participated in the visit. I performed this telemedicine visit from my offsite office utilizing interactive 2 way audio and visual telecommunication technology at the request of the onsite inpatient provider. Consent: Verbal consent was unable to be obtained due to patient condition, lack of family presence, or emergent nature of consult. Total time spent in telemedicine encounter: I spent 10 minutes reviewing clinical data and/or imaging, obtaining history, examining the patient, commun icating with the onsite care team, and in preparation of this report. Electronically signed at 01/02/2025 13:50 ([place]roll Time) by Migue Muñiz MD Neuro Consult Order placed for: Yes MIGUE MUÑIZ MD Jan 02, 2025 13:51
--- NOTE | 2025-01-02 14:17 | CARDIOLOGY REPORT ---
APPROVED REPORT EXAM: Comprehensive 2D, Doppler, and color-flow Echocardiogram. 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 122.2 cm/s AoV VTI 24.0 cm AO Peak GR. 6.0 mmHg AO Mean GR. 3 mmHg LVOT VTI 17.11 cm LVOT Peak Angel. 94.2 cm/s NOAH (VMAX) 2.05 cm2 NOAH (VTI) 2.04 cm2 AV DI 0.64 % Mitral Valve MV PHT 65 ms MVA (PHT) 4.22 cm2 MVA VTI 3.57 cm2 Tricuspid Valve TR P. Velocity 145 cm/s RAP ESTIMATE 5 mmHg TR Peak Gr. 8 mmHg RVSP 13 mmHg LEFT VENTRICLE Normal LV size and function. Mild concentric hypertrophy. Overall LVEF is 55%. RIGHT VENTRICLE RV is normal size and function. ATRIA The left atrium size is normal. AORTIC VALVE Trileaflet AV appears moderately sclerotic without stenosis. Trace insufficiency. MITRAL VALVE Moderate MV annular calcification without stenosis. Trace regurgitation. TRICUSPID VALVE TV appears structurally normal with trace regurgitation. PULMONIC VALVE Normal PV without stenosis, physiologic insufficiency. GREAT VESSELS Aortic root is normal in size. Ascending aorta is normal in size. PERICARDIUM Normal pericardium. No effusion. Other Information Study Quality: Adequate Conclusion Overall LVEF is 55%. Normal LV size and function. Mild concentric hypertrophy. RV is normal size and function. Trileaflet AV appears moderately sclerotic without stenosis. Trace insufficiency. Moderate MV annular calcification without stenosis. Trace regurgitation. TV appears structurally normal with trace regurgitation. Normal PV without stenosis, physiologic insufficiency. Normal pericardium. No effusion.
--- NOTE | 2025-01-02 14:29 | RADIOLOGY REPORT ---
Examination: CT CTA ABDOMEN LOWER EXTR RUNOFF, CT CTA CHEST AORTA CLINICAL HISTORY: eval LLE clot/flow Comparison: None Technique: Using helical technique, CT data from the chest through the toes was obtained during rapid IV contrast infusion. The examination was timed to the arterial system to generate a CT angiographic study. 3D images were generated at an independent work station. Dose reduction techniques included automated exposure control. Radiation Dose Information: CT Dose: CTDI volume is 4.5 mGy. Dose-length product is 2254 mGy*cm Findings: Vascular: Thoracic aorta: 1.5 cm atheromatous plaque in the anterior aspect of the aortic arch. Vascular calcifications of the aorta. Descending aorta: Normal caliber, patent Supraaortic branches: Conventional branching pattern. Normal caliber, patent Coronary arteries: No coronary artery calcifications. Right central venous catheter in satisfactory position. Abdominal aorta: Normal caliber, patent. Diffuse vascular atherosclerotic disease. Celiac artery: Patent SMA: Patent Renal arteries: Patent HARIS: Patent Right lower extremity: Common iliac artery: Patent External iliac artery: Patent Internal iliac artery: Patent Common femoral artery: Patent Profunda femoral artery: Patent Superficial femoral artery: Patent Popliteal artery: Patent Anterior tibial artery: Patent Peroneal tibial trunk: Patent Peroneal artery: Patent Posterior tibial artery: Patent Dorsalis pedis artery: Patent Left lower extremity: Common iliac artery: Patent External iliac artery: Patent Internal iliac artery: Patent Common femoral artery: Patent Profunda femoral artery: Patent Superficial femoral artery: Patent Popliteal artery: Patent Anterior tibial artery: Patent proximally Peroneal tibial trunk: Patent Peroneal artery: Patent proximally Posterior tibial artery: Patent Dorsalis pedis artery: Patent Portal/mesenteric veins: Small volume portal venous gas in the liver. Abdominal systemic veins: normal Chest: Lungs/Pleura: Small bilateral pleural effusions. Dependent/subsegmental compressive atelectasis. Axilla/Soft Tissue: No supraclavicular or axillary adenopathy. Regional soft tissues are within normal limits. Mediastinum:Visualized thyroid is normal. No pathologic mediastinal or hilar adenopathy. Esophagus is normal. Trachea and proximal bronchi are normal. Heart: The heart is normal in size. No pericardial effusion. Endotracheal tube in satisfactory position. Abdomen/Pelvis: Liver: The liver is normal in size and morphology,. No focal hepatic lesion. The portal veins are patent. Biliary System: Gallbladder: Mildly distended. Mild pericholecystic edema. Bile Ducts: No intrahepatic or extrahepatic biliary ductal dilation. Spleen: No splenomegaly or focal splenic lesion. Pancreas: No masses or ductal dilation. Adrenals: Normal. Urinary System: Kidneys and Ureters: Normal in size and location. No renal masses. No renal or ureteral calculi. No hydronephrosis or hydroureter. Bladder: Malone catheter in the urinary bladder. GI System: Enteric catheter in the stomach. Rectal tube in-situ. Severe diffuse small bowel wall thickening. Diffuse mesenteric infiltrative changes. Lymph nodes: No lymphadenopathy. Peritoneal cavity and surface: Small volume free intraperitoneal air. Soft Tissues: Normal. Reproductive Organs: Normal. Bones: No acute fracture or aggressive osseous lesion. Impression: Diffuse vascular atherosclerotic disease. Faint 3-vessel arterial flow into the right foot. Single-vessel arterial flow into the left foot via the posterior tibial artery. 1.5 cm noncalcific atheromatous plaque in the anterior aspect of the aortic arch. Severe diffuse small bowel wall thickening and mesenteric infiltrative changes. This is a nonspecific finding but can be seen in bowel ischemia. Clinical correlation advised. Small volume portal venous gas. Small volume free intraperitoneal air. Surgical drain in the pelvis. Small bilateral pleural effusions and dependent atelectasis.
[2025-01-02] MEDS: mineral oil/petrolatum ophthal oint EACHEYE SCH (15:06)
[2025-01-02] MEDS: acetaminophen 325mg/10.15ml oral unit dose solution PO PRN (15:36)
[2025-01-02] MEDS ORDERED: mineral oil/petrolatum ophthal oint EACHEYE SCH (16:00)
--- NOTE | 2025-01-02 16:00 | BLUE SKY NEURO CONSULT REPORT ---
[facility] Procedure Note [facility] Procedure Note Consult [place] [facility] Note # Demographics Type of EEG Read: - Continuous EEG - hook-up - video Patient Location: Inpatient First Name: Dax Last Name: Rafat Date of : 1950 Age: 74 Gender: Male Facility: [facility] Time of Initial Page (): 01/02/2025 14:25 First Contact with Site ( Time): 01/02/2025 14:29 # EEG Interpretation Start Time of EEG Read (): 01/02/2025 14:13 Stop Time of EEG Read (): 01/02/2025 15:55 Duration: 1h 42m Technical Details: - This study was recorded using the [employer] EEG software Indication: - altered mental status # Description Photic Stimulation: NOT Performed Hyperventilation: NOT performed Phases Captured: - drowsy Symmetry: symmetric Posterior Dominant Rhythm: absent Predominant Frequencies: - delta (2-3 Hz) - continuous (>90%) Amplitude: normal Reactivity: yes Variability: yes Continuity: continuous # Abnormalities Epileptiform Abnormalities: - NOT present Focal Slowing: no Seizure: - NOT present # Impression Impression: abnormal Diffuse Slowing # Clinical Correlation Clinical Correlation: Diffuse slowing is non-specific and may be seen in the setting of diffuse cerebral dysfunction; such as toxic/metabolic/infectious encephalopathy or heavily sedating medication use. # Demographics First Name: Dax Last Name: Rafat Facility: [facility] Neuro Consult Order placed for: Yes CATIA RODARTE MD Jan 02, 2025 16:00
--- NOTE | 2025-01-02 16:59 | PROGRESS NOTE ---
Daily Progress Note Providers to CC Patient intubated sedated resting comfortably in the bed ~ Central Line/PICC still needed: Yes Malone-Non Protocol Malone Indications Met/Not Met: F/C Indications Met Antibiotic Timeout Antibiotic Ordered?: Yes MRSA Education MRSA Education Provided to pt: Yes Subjective As above Objective Vital Signs Date Time Temp Pulse Resp B/P (MAP) Pulse Ox O2 Delivery O2 Flow Rate FiO2 01/02/25 16:00 101.3 110 25 99/52 (68) 98 Mechanical Ventilator 50 01/01/25 13:43 0 Vital signs, stable , tachycardic, febrile, Pulse Oximetry reflects adequate oxygenation, intubated, sedated FiO2 50% General: well developed, sedated, on ventilator, resting comfortably in the bed, in no acute distress . Skin: Warm, dry, no pallor, no rash or petechiae. HEENT: Atraumatic, normocephalic, EOMI, anicteric sclera B; pink conjunctiva; PERRLA, normal oropharynx, moist oral and nasal mucosa. Tympanic membrane , nose , throat clear. Neck: Trachea midline. Supple, full range of motion, no JVD, bruit , hepatojugular reflex , lymphadenopathy or masses, or other lesions Cardiac: Regular rhythm, regular rate no murmurs, rubs, or gallops. Normal S1 and S2, no S3 noticed. PMI is normal. Respiratory: Equal breath sounds bilaterally, no tachypnea; lungs clear to auscultation bilaterally, no wheezing ,rub or rales, or crackles. Chest wall is symmetric and without deformity. No signs of trauma. Chest wall is nontender. No signs of respiratory distress. Resonance is normal upon percussion bilaterally. Gastrointestinal: Abdomen symmetric, dressing clean dry intact no hepatosplenomegaly , no masses , no bruit, no flank pain bilaterally. No voluntary guarding, rebound, or rigidity. No tenderness to percussion. No pulsatile masses. Equal femoral pulses. No Linn's sign or McBurney point tenderness. Back; no CVA tenderness bilaterally, no deformities. Neck and back are without deformity as well. No tenderness noted on palpation of the spinous processes. Spinous processes are midline. Cervical, thoracic, and lumbar paraspinal muscles are not tender and are without spasm. : normal external genitalia, without lesions, swelling, masses or tenderness. Musculoskeletal: Extremities, normal range of motion, non-tender, muscle strength 5/5 x 4. Negative Homans signs bilaterally on lower extremity. Distal pulses full symmetrical, no clubbing, cyanosis , edema. Neurological: Sedated on ventilator No motor or sensory deficit, deep tendon reflexes normal, cerebellar intact. Cranial nerves II-XII intact. Psyc dated on ventilator Vascular: Good distal pulses, which are equal x4; capillary refill less than 2 seconds. Lymphatic, no lymphadenopathy. Result Diagram: 01/02/2552101/02/25521 Coagulation Studies Laboratory Tests Test 01/02/25 05:22 Prothrombin Time 22.0 SECONDS (9.0-12.0) H INR International Normalized Ratio 2.3 INR Activated Partial Thromboplast Time 122 SECONDS (22-32) *H Coagulation Comments Problem\Assessment\Plan Assessment Status post cardiorespiratory arrest, Rosc achieved after CPR History of peptic ulcer disease, esophagitis, GERD, in exacerbation Perforated viscus, small-bowel perforation Status post exploratory laparotomy, small-bowel resection, colonic decompression Sepsis Diabetes mellitus type 2 poor control DKA Acute pancreatitis Chronic constipation in exacerbation Hyponatremia Acute renal failure Additional comorbidities, hypoalbuminemia, hepatic steatosis, BPH, bilateral pleural effusion trace, history of right knee TKA, history of abdominal surgery, chronic kidney disease, hypothyroidism, history of thyroid cancer, ventral hernia, hypoalbuminemia, hepatic steatosis, Altered level of consciousness Plan Correct electrolytes, IV fluids On DKA protocol IV insulin infusion Patient intubated, on ventilator FiO2 50% IV antibiotics IV Protonix Antiemetics, pain control IV p.o. analgesics Dr. Virk manageing in the surgical conditions Was evaluated by virtual neurologist, recommendation to be implemented DVT gastropathy prophylaxis addressed Sepsis Screening Reassessment Date: Jan 02, 2025 Date of Service: Jan 02, 2025 Billing Provider: KAILYN GRIMES MD Common Visit Codes: [id number] INP/OBS CARE(HIGH) KAILYN GRIMES MD Jan 02, 2025 16:59
--- NOTE | 2025-01-02 18:15 | PROGRESS NOTE ---
Progress Note ID Providers to CC ~ Progress Note Progress Note: intubated/vss with levo and vaso/abd-min distention/labs noted/cta reviewed a/p 1. s/p small bowel resection for perforation/needs repeat lap 2. resp failure-stable 3. hemodyn stable 4. neuro-awaiting consult repeat lap SUN LEE MD Jan 02, 2025 18:15
[2025-01-02 18:46] LABS: MEAN PLATELET VOLUME 9.6 FL (7.4-10.4); RED CELL DISTRIBUTION WIDTH 13.5 % (11.5-14.5)
[2025-01-02 19:11] LABS: PRO BRAIN NATRIURETIC PEPTIDE 19897 PG/ML (0-450)
[2025-01-02 19:31] LABS: ABG BASE EXCESS -5.5 mmol/L (-2.0-3.0); ABG HCO3 17.4 mmol/L (21.0-28.0); ABG OXYGEN SATURATION 91.3 % (94.0-98.0); ABG PCO2 (T) 25.6 mmHg (35.0-48.0); ABG PH (T) 7.449 (7.350-7.450); ABG PO2 (T) 60.5 mmHg (83.0-108.0); FCOHb 0.2 % (0.5-1.5); FHHb 8.7 % (0.0-5.0); FIO2 50.0 mmHg/%; FMetHb 0.3 % (0.0-1.5); FO2Hb 90.8 % (94.0-98.0); MODE ac/prvc .09; PATIENT TEMPERATURE 37.0; PEEP 5 cm H2O; RESPIRATORY RATE 18 b/min; TIDAL VOLUME 550 mL; TOTAL HEMOGLOBIN 10.1 G/dl (13.5-17.5)
--- NOTE | 2025-01-02 22:32 | PROGRESS NOTE ---
Progress Note Dictate Providers to CC ~ Progress Note: 74 year old male with htn diabetes admitted post cardiac arrest. Plan: titrate down fentanyl goal normothermia start tube feeds SAT and SBT in am CCT 60 min using HIPPA compliant A/V technology Antibiotic Ordered?: Yes Objective Vitals Vital Signs Date Time Temp Pulse Resp B/P (MAP) Pulse Ox O2 Delivery O2 Flow Rate FiO2 01/02/25 21:31 116 27 97 50 01/02/25 20:00 98.6 117/57 (77) Mechanical Ventilator 01/01/25 13:43 0 Lab Results: 01/02/25 1820 01/02/25 1820 Coagulation Studies Laboratory Tests Test 01/02/25 05:22 Prothrombin Time 22.0 SECONDS (9.0-12.0) H INR International Normalized Ratio 2.3 INR Activated Partial Thromboplast Time 122 SECONDS (22-32) *H Coagulation Comments JOSE RAMON MENDOZA MD Jan 02, 2025 22:32
[2025-01-03] VITALS (45 sets, daily range): BP systolic 93–142; BP diastolic 46–68; PULSE 84–130; RESP 16–25; O2SAT 90–100
[2025-01-03 05:16] LABS: ABG BASE EXCESS -5.4 mmol/L (-2.0-3.0); ABG HCO3 18.2 mmol/L (21.0-28.0); ABG OXYGEN SATURATION 91.8 % (94.0-98.0); ABG PCO2 (T) 30.4 mmHg (35.0-48.0); ABG PH (T) 7.399 (7.350-7.450); ABG PO2 (T) 71.1 mmHg (83.0-108.0); FCOHb 0.0 % (0.5-1.5); FHHb 8.2 % (0.0-5.0); FIO2 50.0 mmHg/%; FMetHb 0.3 % (0.0-1.5); FO2Hb 91.5 % (94.0-98.0); MODE AC/PRVC; PATIENT TEMPERATURE 38.1; PEEP 5 cm H2O; RESPIRATORY RATE 18 b/min; TIDAL VOLUME 550 mL; TOTAL HEMOGLOBIN 10.1 G/dl (13.5-17.5)
--- NOTE | 2025-01-03 05:54 | RADIOLOGY REPORT ---
CHEST RADIOGRAPH Indication: intubated Technique: Single frontal view of the chest was obtained COMPARISON: CT CTA CHEST AORTA on DOS: 01/02/25, DI CHEST,SINGLE VIEW on DOS: 01/02/25, DI CHEST,SINGLE VIEW on DOS: 01/01/25, DI CHEST,SINGLE VIEW on DOS: 01/01/25 FINDINGS: Lines and Tubes: Endotracheal tube, enteric catheter and right central venous catheter in satisfactory position. Lungs: Unchanged pulmonary vascular congestion. Pleura: No effusion.No pneumothorax. Cardiomediastinal contours: Unremarkable Bones: Unremarkable IMPRESSION: Lines and tubes in satisfactory position. No significant interval change.
[2025-01-03 06:10] LABS: CREATININE 1.50 MG/DL (0.60-1.10); TOTAL CARBON DIOXIDE 22.7 MMOL/L (24-32); eCRCL 41 ML/MIN; eGFR 46 ML/MIN
[2025-01-03 06:16] LABS: MEAN PLATELET VOLUME 10.0 FL (7.4-10.4); RED CELL DISTRIBUTION WIDTH 13.8 % (11.5-14.5)
[2025-01-03 07:31] LABS: PHOSPHORUS 5.4 MG/DL (2.3-4.5)
[2025-01-03 07:55] LABS: APTT 92 SECONDS (22-32)
--- NOTE | 2025-01-03 08:52 | [facility] CONSULT REPORT ---
[facility] Procedure Note [facility] Procedure Note Consult [facility] Note # Demographics Type of EEG Read: - Continuous EEG - video Patient Location: Inpatient First Name: Dax Last Name: Rafat Date of : 1950 Age: 74 Gender: Male Facility: [facility] # EEG Interpretation Start Time of EEG Read ( Time): 01/02/2025 15:13 Stop Time of EEG Read ( Time): 01/02/2025 21:13 Duration: 6h 0m Technical Details: - This study was recorded using the [employer] EEG software Indication: - altered mental status # Description Photic Stimulation: NOT Performed Hyperventilation: NOT performed Phases Captured: - drowsy Symmetry: symmetric Posterior Dominant Rhythm: absent Predominant Frequencies: - delta (2-3 Hz) - continuous (>90%) Amplitude: normal Reactivity: yes Variability: yes Continuity: continuous # Abnormalities Epileptiform Abnormalities: - NOT present Focal Slowing: no Seizure: - NOT present # Impression Impression: abnormal Diffuse Slowing # Clinical Correlation Clinical Correlation: Diffuse slowing is non-specific and may be seen in the setting of diffuse cerebral dysfunction; such as toxic/metabolic/infectious encephalopathy or heavily sedating medication use. # Demographics First Name: Dax Last Name: Rafat Facility: [facility] Neuro Consult Order placed for: Yes CATIA RODARTE MD Jan 03, 2025 08:52
[2025-01-03 09:13] LABS: BANDS% (MANUAL) 66.0 % (0-10); EOSINOPHILS % (MANUAL) 2.0 % (0-6); LYMPHOCYTES % (MANUAL) 4.0 % (21-51); METAMYLEOCYTES% (MANUAL) 5.0 % (0-0); MONOCYTES % (MANUAL) 2.0 % (2-12); NEUTROPHILS % (MANUAL) 21.0 % (42-75)
[2025-01-03 09:15] LABS: PLATELET ESTIMATE DECREASED
[2025-01-03] MEDS: amiodarone 150mg/dext, iso-os 100 ML IV ONE (09:26)
[2025-01-03] MEDS: amiodarone/D5 360MG/200ML BAG 200 ML IV SCH (09:27)
[2025-01-03 10:03] LABS: OXYGEN SATURATION (MIXED VEN) 61.8 % (60-80); PO2 MIXED VENOUS (TEMP COR) 35.8 mmHg (35-46)
--- NOTE | 2025-01-03 14:29 | VASCULAR REPORT ---
RIGHT UPPER EXTREMITY ARTERIAL DUPLEX ULTRASOUND STUDY: REASON FOR EXAM: Absent pulses in the right arm TECHNIQUE: The full lengths of the arterial segments were evaluated with color- flow Doppler ultrasound. Suspected abnormalities were evaluated with kurtz scale ultrasound. Medical Biller/Coder spectral Doppler waveforms, with velocity measurements were obtained. Spectral waveforms with velocity measurements were obtained 2 to 4 cm central to any areas of significant stenosis. Subclavian, axillary, brachial, radial, and ulnar arteries were evaluated. FINDINGS: There is diffuse atherosclerotic plaque throughout the right upper extremity. The subclavian artery waveform is multiphasic. The axillary and brachial arteries are patent with multiphasic waveforms. There is trace flow in the midportion of the radial artery and no flow identified in the distal radial a rtery. No flow is identified in the ulnar artery. IMPRESSION: Normal-appearing arterial flow in the upper arm with little to no flow in the radial artery and no flow identified in the ulnar artery. Vascular surgical consultation is recommended.
[2025-01-03] MEDS: HEPARIN DRIP DVT/PE -**PHARMACIST TO DOSE IV ONE (14:30)
[2025-01-03] MEDS ORDERED: heparin 10,000 units/1 ML INJ IV PRN (14:35)
[2025-01-03] MEDS: MESSAGE TO NURSING IV ONE ×2 (14:40→20:30)
[2025-01-03] MEDS: heparin 10,000 units/1 ML INJ IV ONE (14:43)
--- NOTE | 2025-01-03 14:43 | PROGRESS NOTE ---
Progress Note ID Providers to CC ~ Progress Note Progress Note: pt has abrupt onset of RUE ischemia-needs emergent thrombectomy-also needs repeat lap with possible bowel resection-discussed procedure including risks/benefits/alternatives with SUN LEE MD Jan 03, 2025 14:43
[2025-01-03] MEDS: heparin 25,000 UNIT/250ml bag 250 ML IV PRN (14:44)
[2025-01-03] MEDS: ringers solution, lacted 1,000 ML IV SCH (15:03)
[2025-01-03] MEDS ORDERED: iohexol 300mg/ml 100ml inj. ONE (15:46)
[2025-01-03] MEDS ORDERED: heparin 10,000 units/1 ML INJ ONE ×2 (15:46→17:31)
[2025-01-03 17:19] LABS: APTT > 139 SECONDS (22-32)
--- NOTE | 2025-01-03 17:33 | PROGRESS NOTE ---
Daily Progress Note Providers to CC Patient intubated resting comfortably in the bed ~ Central Line/PICC still needed: Yes Malone-Non Protocol Malone Indications Met/Not Met: F/C Indications Met Antibiotic Timeout Antibiotic Ordered?: Yes Subjective As above Objective Vital Signs Date Time Temp Pulse Resp B/P (MAP) Pulse Ox O2 Delivery O2 Flow Rate FiO2 01/03/25 15:00 18 50 01/03/25 15:00 99.7 102 115/58 (77) Mechanical Ventilator 01/03/25 14:08 97 01/01/25 13:43 0 Vital signs, stable ,afebrile. Pulse Oximetry reflects adequate oxygenation FiO2 50%, on mechanical ventilation intubated General: well developed, well nourished. Sedated, resting comfortably in the bed, in no acute distress . Skin: Warm, dry, no pallor, no rash or petechiae. HEENT: Atraumatic, normocephalic, EOMI, anicteric sclera B; pink conjunctiva; PERRLA, normal oropharynx, moist oral and nasal mucosa. Tympanic membrane , nose , throat clear. Neck: Trachea midline. Supple, full range of motion, no JVD, bruit , hepatojugular reflex , lymphadenopathy or masses, or other lesions Cardiac: Regular rhythm, regular rate no murmurs, rubs, or gallops. Normal S1 and S2, no S3 noticed. PMI is normal. Respiratory: Equal breath sounds bilaterally, no tachypnea; lungs clear to auscultation bilaterally, no wheezing ,rub or rales, or crackles. Chest wall is symmetric and without deformity. No signs of trauma. Chest wall is nontender. No signs of respiratory distress. Resonance is normal upon percussion bilaterally. Gastrointestinal: Abdomen symmetric, non-distended, soft, dressing clean dry intact, normal bowel sounds x4 quadrant, normoactive, no hepatosplenomegaly , no masses , no bruit, no flank pain bilaterally. No voluntary guarding, rebound, or rigidity. No tenderness to percussion. No pulsatile masses. Equal femoral pulses. No Linn's sign or McBurney point tenderness. Back; no CVA tenderness bilaterally, no deformities. Neck and back are without deformity as well. No tenderness noted on palpation of the spinous processes. Spinous processes are midline. Cervical, thoracic, and lumbar paraspinal muscles are not tender and are without spasm. : normal external genitalia, without lesions, swelling, masses or tenderness. Musculoskeletal: Extremities, normal range of motion, non-tender, muscle strength 5/5 x 4. Negative Homans signs bilaterally on lower extremity. Distal pulses full symmetrical, no clubbing, cyanosis , edema. Right upper extremity possibly ischemic changes, Neurological: Intubated on ventilator sedated Psych: Sedated on ventilator intubated Vascular: Good distal pulses, which are equal x4; capillary refill less than 2 seconds. Lymphatic, no lymphadenopathy. Result Diagram: 01/03/25 0505 01/03/25 0505 Coagulation Studies Laboratory Tests Test 01/02/25 05:22 01/03/25 16:15 Prothrombin Time 22.0 SECONDS (9.0-12.0) H INR International Normalized Ratio 2.3 INR Activated Partial Thromboplast Time > 139 SECONDS (22-32) *H Coagulation Comments Problem\Assessment\Plan Assessment Status post cardiorespiratory arrest, Rosc achieved after CPR History of peptic ulcer disease, esophagitis, GERD, in exacerbation Perforated viscus, small-bowel perforation Status post exploratory laparotomy, small-bowel resection, colonic decompression Sepsis Diabetes mellitus type 2 poor control PVD, associated with ischemic changes right upper extremity Acute pancreatitis Chronic constipation in exacerbation Hyponatremia Acute renal failure Additional comorbidities, hypoalbuminemia, hepatic steatosis, BPH, bilateral pleural effusion trace, history of right knee TKA, history of abdominal surgery, chronic kidney disease, hypothyroidism, history of thyroid cancer, ventral hernia, hypoalbuminemia, hepatic steatosis, Altered level of consciousness Plan Correct electrolytes, IV fluids Hypo, hyperglycemia protocol Patient intubated, on ventilator FiO2 50% IV antibiotics IV Protonix Antiemetics, pain control IV p.o. analgesics Dr. Virk manageing in the surgical conditions Was evaluated by virtual neurologist, recommendation to be implemented DVT gastropathy prophylaxis addressed Sepsis Screening Reassessment Date: Jan 03, 2025 Date of Service: Jan 03, 2025 Billing Provider: KAILYN GRIMES MD Common Visit Codes: [id number] INP/OBS CARE(HIGH) KAILYN GRIMES MD Jan 03, 2025 17:33
[2025-01-03] MEDS ORDERED: sodium phosphate inj. 30 MMOL in dextrose 5%-water 250 ML IV PRN (17:35)
[2025-01-03] MEDS ORDERED: sodium phos 15mmol/D5 255mL 255 ML IV PRN (17:35)
[2025-01-03] MEDS ORDERED: rocuronium 10mg/ml inj IV ONE ×3 (18:14)
[2025-01-03] MEDS ORDERED: albumin (Human) 5% 250ml 250 ML IV ONE (18:14)
[2025-01-03] MEDS ORDERED: albumin (Human) 5% 250ml 0 ML IV ONE (18:14)
[2025-01-03] MEDS ORDERED: ePHEDrine 50MG/ML INJ. ONE (18:14)
[2025-01-03] MEDS ORDERED: 0.9 % SODIUM CHLORIDE 10 ML VIAL ONE (18:14)
--- NOTE | 2025-01-03 18:30 | OPERATIVE REPORT ---
Operative Report Providers to CC ~ Date of Procedure: Jan 03, 2025 Pre-Operative Diagnosis: s/p small bowel resection for perforation/RUE ALI Post-Operative Diagnosis SAME as PRE-Op Procedure Performed right radial artery thromectomy/repeat lap/small bowel resection Surgeon: jimbo Hard Hat Diver none Anesthesiologist: Delia Lopez Type of Anesthesia: General Findings: radial artery clot/ischemic small bowel/good flow in proximal sma Estimated Blood Loss: 200 ml Specimen Removed: radial artery clot/small bowel SUN LEE MD Jan 03, 2025 18:30
--- NOTE | 2025-01-03 18:32 | CONSULTATION REPORT ---
Consult Consult Consultation Chart reviewed. Full note to follow tomorrow (will be authored by Dr. Lim). Patient here with perforated bowel complicated by cardiopulmonary arrest. He is going back to the operating room today to readdress his abdomen and deal with an ischemic right upper extremity. Continue Zosyn. Will add micafungin. Reassess in the morning. Check blood cultures and recheck procalcitonin and lactate. SAMARIA GARZA MD Jan 03, 2025 18:32
[2025-01-03 19:11] LABS: MEAN PLATELET VOLUME 10.0 FL (7.4-10.4); RED CELL DISTRIBUTION WIDTH 14.4 % (11.5-14.5)
[2025-01-03 19:14] LABS: ABG BASE EXCESS -19.6 mmol/L (-2.0-3.0); ABG HCO3 9.3 mmol/L (21.0-28.0); ABG OXYGEN SATURATION 99.7 % (94.0-98.0); ABG PCO2 (T) 32.4 mmHg (35.0-48.0); ABG PH (T) 7.073 (7.350-7.450); ABG PO2 (T) 349.1 mmHg (83.0-108.0); FCOHb 0.3 % (0.5-1.5); FHHb 0.3 % (0.0-5.0); FIO2 100.0 mmHg/%; FMetHb 0.0 % (0.0-1.5); FO2Hb 99.4 % (94.0-98.0); MODE prvc; PATIENT TEMPERATURE 36.4; PEEP 5 cm H2O; RESPIRATORY RATE 18 b/min; TIDAL VOLUME 550 mL; TOTAL HEMOGLOBIN 9.5 G/dl (13.5-17.5)
[2025-01-03] MEDS: COMMUNICATION ORDER 1 EA MISC MC ONE (19:25)
[2025-01-03 19:27] LABS: OXYGEN SATURATION (MIXED VEN) 93.5 % (60-80); PO2 MIXED VENOUS (TEMP COR) 96.3 mmHg (35-46)
[2025-01-03] MEDS ORDERED: heparin 25,000 UNIT/250ml bag 250 ML IV PRN (19:29)
[2025-01-03 19:31] LABS: CREATININE 2.10 MG/DL (0.60-1.10); eCRCL 29 ML/MIN; eGFR 31 ML/MIN
[2025-01-03 19:35] LABS: PHOSPHORUS 10.0 MG/DL (2.3-4.5)
[2025-01-03 19:56] LABS: INR 4.0 INR
[2025-01-03 19:58] LABS: APTT > 139 SECONDS (22-32)
[2025-01-03 19:59] LABS: TOTAL CARBON DIOXIDE 15.0 MMOL/L (24-32)
[2025-01-03] MEDS: albumin (Human) 5% 250ml 250 ML IV ONE ×2 (20:07→20:20)
[2025-01-03] MEDS: sodium bicarbonate 1meq/ml inj 150 ML in dextrose 5%-water 1,000 ML IV SCH (20:08)
[2025-01-03] MEDS: micafungin inj 100 MG in normal saline 100ml IV soln 100 ML IV SCH (20:42)
[2025-01-03 21:02] LABS: CREATININE 2.13 MG/DL (0.60-1.10); eCRCL 29 ML/MIN; eGFR 30 ML/MIN
[2025-01-03 21:03] LABS: PHOSPHORUS 11.1 MG/DL (2.3-4.5)
[2025-01-03 21:17] LABS: TOTAL CARBON DIOXIDE 9.5 MMOL/L (24-32)
[2025-01-03] MEDS: calcium acetate 667mg (PhosLO) capsule PO SCH (22:18)
--- NOTE | 2025-01-03 22:35 | PROGRESS NOTE ---
Progress Note Dictate Providers to CC ~ Antibiotic Ordered?: Yes Objective Vitals Vital Signs Date Time Temp Pulse Resp B/P (MAP) Pulse Ox O2 Delivery O2 Flow Rate FiO2 01/03/25 20:50 92 18 92 70 01/03/25 20:37 133/48 01/03/25 19:30 96.8 Mechanical Ventilator 01/01/25 13:43 0 Lab Results: 01/03/25 1900 01/03/252019 Coagulation Studies Laboratory Tests Test 01/03/25 19:00 01/03/25 20:20 Prothrombin Time 36.1 SECONDS (9.0-12.0) H INR International Normalized Ratio 4.0 INR #*H Activated Partial Thromboplast Time > 139 SECONDS (22-32) *H APTT (Heparin Protocol) 130 SECONDS (45-75) *H Coagulation Comments Problem\Assessment\Plan Additional Plan Night Time TeleICU coverage Patient seen and evaluated using HIPPA compliant AV device S/P Laparoscpy and bowel resection Worsening Shock and metabolic acidosis Intubated and sedated Septic shock from intrabdorminal infection continue BS antimicrobial Bicarb pushes, increase drip to 150cc/hr, DC Lr On multiple pressors add stress dose steroid Phos binders, surgeon okay with this, may need dialysis if this persist in Am kishore in presence of severe metabolic acidosis Continue rest of care CCT 60mins MD OLINDA Richmond HILL A MD Jan 03, 2025 22:35
[2025-01-03] MEDS: sodium bicarbonate (8.4%) 1 mEq/ml syringe IV ONE (22:58)
[2025-01-03] MEDS: hydrocortisone sod succ/PF 100mg/2ml inj. IV SCH (23:09)
[2025-01-04] VITALS (35 sets, daily range): BP systolic 87–144; BP diastolic 40–66; PULSE 12–107; RESP 18–19; TEMP 98.5–99.1; O2SAT 94–99
[2025-01-04] MEDS: ringers solution, lacted 1,000 ML IV ONE (02:20)
[2025-01-04] MEDS: epiNEPHrine inj 5 MG, calcium chloride inj. 1,000 MG in normal saline 250ml IV soln 235 ML IV PRN (02:28)
[2025-01-04] MEDS: COMMUNICATION ORDER 1 EA MISC MC ONE ×3 (02:55→11:06)
[2025-01-04 03:32] LABS: ABG BASE EXCESS -23.7 mmol/L (-2.0-3.0); ABG HCO3 6.2 mmol/L (21.0-28.0); ABG OXYGEN SATURATION 94.9 % (94.0-98.0); ABG PCO2 (T) 26.9 mmHg (35.0-48.0); ABG PH (T) 6.976 (7.350-7.450); ABG PO2 (T) 107.5 mmHg (83.0-108.0); FCOHb 0.5 % (0.5-1.5); FHHb 5.1 % (0.0-5.0); FIO2 55.0 mmHg/%; FMetHb 0.2 % (0.0-1.5); FO2Hb 94.2 % (94.0-98.0); MODE prvc; PATIENT TEMPERATURE 36.7; PEEP 5 cm H2O; RESPIRATORY RATE 18 b/min; TIDAL VOLUME 550 mL; TOTAL HEMOGLOBIN 7.4 G/dl (13.5-17.5)
[2025-01-04 03:46] LABS: MEAN PLATELET VOLUME 10.3 FL (7.4-10.4); RED CELL DISTRIBUTION WIDTH 16.0 % (11.5-14.5)
[2025-01-04 03:59] LABS: CREATININE 2.56 MG/DL (0.60-1.10); eCRCL 24 ML/MIN; eGFR 25 ML/MIN
[2025-01-04 04:11] LABS: BANDS% (MANUAL) 4.0 % (0-10); LYMPHOCYTES % (MANUAL) 6.0 % (21-51); MONOCYTES % (MANUAL) 2.0 % (2-12); NEUTROPHILS % (MANUAL) 88.0 % (42-75); NUCLEATED RED BLOOD CELLS 1 /100WBC (0-0); PLATELET ESTIMATE DECREASED
[2025-01-04] MEDS: sodium bicarbonate (8.4%) 1 mEq/ml syringe IV ONE (04:25)
--- NOTE | 2025-01-04 04:27 | OPERATIVE REPORT ---
DATE OF SURGERY: 01/03/2025 DICTATING PHYSICIAN: Dre Virk MD DATE OF OPERATION: 01/03/2025 PREOPERATIVE DIAGNOSES: * Right upper extremity acute limb ischemia. * Status post laparotomy with small bowel resection and perforation. POSTOPERATIVE DIAGNOSES: * Right upper extremity acute limb ischemia. * Status post laparotomy with small bowel resection and perforation. PROCEDURES PERFORMED: Right radial artery thrombectomy. Repeat laparotomy. Small bowel resection. SURGEON: Dre Virk MD. SHEET METAL APPRENTICE: None. ANESTHESIA: General/Dr. Lopez. DRAINS: [place] x1. INDICATIONS FOR OPERATION: The patient is a 74-year-old male who presented to the ER with abdominal pain. Subsequently, he had a cardiac arrest and was brought back after 6 minutes of CPR. A CAT scan revealed evidence of a perforated viscus. The patient had surgery and was found to have a perforation of the proximal jejunum just distal to the ligament of Treitz. The patient underwent a small bowel resection, damage control operation, taken back for a planned second-look operation today. Prior to ____ ischemic right upper extremity from the elbow down to the wrist. Doppler study confirmed no flow in the radial and ulnar arteries. The patient was sent to surgery for a radial artery thrombectomy and repeat laparotomy. INTRAOPERATIVE FINDINGS: The patient had a large amount of clot in the right radial artery. The patient had good flow of the radial artery post-thrombectomy. Under repeat laparotomy, the patient had persistent ischemic small bowel. The SMA was exposed. The patient had good flow in the SMA, but there was diffuse small bowel ischemia as well as large bowel ischemia. The patient's small bowel was resected given the ischemia. The patient maintained on heparin. This patient was found with venous thrombosis situation. The patient was transferred back to the ICU. The patient being planned initial ____ operation in the next 24 hours to 36 hours. DESCRIPTION OF PROCEDURE: The patient was placed supine on the operating table after being transferred from the ICU. The right upper extremity was prepped and draped. A subcutaneous incision was made in the right antecubital fossa, subcutaneous fat and fascia. The brachial artery was identified distally in the upper extremity. ____ divided. The bifurcation of the brachial artery was identified. The patient was maintained on heparin. A transverse incision was then made in the distal brachial artery above the bifurcation. A #3 Aleks catheter was then passed into the radial artery. A large amount of clot was removed. Visible clot was withdrawn from the ulnar. The vessels were then flushed with heparinized saline. The patient had excellent inflow from the proximal brachial artery. The patient had a good pulse at the wrist post-thrombectomy. The arteriotomy was then closed with a running suture of 6-0 Prolene. The wound was closed in layers. The skin was closed with clips. A dressing was placed. Attention was then turned to the abdomen where the previous incision was prepped and draped and reopened after a timeout was performed. The abdomen was explored. Cultures were obtained. The patient had diffuse ischemic changes of the small bowel with some areas worse than others. A short segment of the small bowel in the proximal jejunum was divided using a JOÃO stapler, and the mesentery was divided using a LigaSure device. There was minimal bleeding. There were concerns about SMA flow. The SMA was subsequently exposed in the mesentery and a Doppler was used to confirm excellent flow in the SMA at the proximal portion of the SMA. The patient was maintained on heparin given the concerns about hypercoagulability. The abdomen was irrigated with a large amount of antibiotic-containing solution. The wound was closed with a running suture of #1 nylon ____ patient back in 24 to 36 hours for a repeat laparotomy for bowel evaluation. A dressing was applied. The patient was transferred back to the ICU. Dre Virk MD TID: [id number] RECEIPT: [id number] KB/CATHERINE
[2025-01-04 05:10] LABS: TOTAL CARBON DIOXIDE 7.7 MMOL/L (24-32)
--- NOTE | 2025-01-04 05:52 | RADIOLOGY REPORT ---
CHEST RADIOGRAPH Indication: intubated Technique: Single frontal view of the chest was obtained COMPARISON: DI CHEST,SINGLE VIEW on DOS: 01/03/25, CT CTA CHEST AORTA on DOS: 01/02/25, DI CHEST,SINGLE VIEW on DOS: 01/02/25, DI CHEST,SINGLE VIEW on DOS: 01/01/25, DI CHEST,SINGLE VIEW on DOS: 01/01/25 FINDINGS: Lines and Tubes: Endotracheal tube, enteric catheter, and right central venous catheter in satisfactory position. Lungs: Unchanged multifocal airspace disease. Pleura: No effusion. No pneumothorax. Cardiomediastinal contours: Unremarkable. Bones: Unremarkable. IMPRESSION: Lines and tubes in satisfactory position. No significant interval change.
[2025-01-04] MEDS ORDERED: COMMUNICATION ORDER 1 EA MISC MC ONE (07:15)
[2025-01-04 10:42] LABS: APTT 128 SECONDS (22-32)
--- NOTE | 2025-01-04 14:01 | CONSULTATION REPORT - RESIDENT ---
Consult Providers to CC Resident Creating Document: MARCO LIM, RES CC: SAMARIA GARZA MD History of Present Illness Reason for Admit\Complaint: Perforated viscus History of Present Illness A 74-year-old male with PMH of CKD, PUD, hypothyroidism, thyroid cancer presented from [place] to the ER in view of abdominal pain. Patient also had lack of bowel movement for the last two weeks after multiple attempts of laxatives and enemas. While in the ER, patient had a large bowel movement and became bradycardic. CPR was initiated, two rounds of epinephrine was given in the ER while doing chest compressions. This prompted ROSC. Patient was progressively intubated and surgically evaluated for perforated viscus. Patient underwent exploratory laparotomy with small-bowel resection on the for perforated viscus and right radial artery thrombectomy with repeat laparotomy for right upper extremity acute limb ischemia on the . ID was consulted in view of perforated viscus with contamination and management of antibiotics Allergies: Coded Allergies: No Known Allergies (Unverified , 02/22/24) Home Medications Home Medications Active Reported Triad (Hydrophilic Cream) 71 Gm Paste..gm. 1 Applic TP DAILY Januvia* (Sitagliptin Phosphate*) 100 Mg Tablet 1 Tab PO DAILY 30 Days Ondansetron Odt (Ondansetron HCl) 4 Mg Tab.rapdis 1 Tab PO QID PRN 4 Days Glipizide 10 Mg Tablet 1 Tab PO DAILY 30 Days Neurontin (Gabapentin) 300 Mg Capsule 1 Cap PO TID 30 Days Fluticasone Propionate 50 Mcg/Actuation Parker.susp 1 Sprays BOTHNARES DAILY Atorvastatin Calcium 10 Mg Tablet 1 Tab PO DAILY 30 Days Aspirin EC (Aspirin) 81 Mg Tablet.dr 1 Tab PO DAILY 30 Days Acetaminophen 325 Mg Tablet 2 Tab PO BID PRN 30 Days Past Medical History Past Medical History Diabetes mellitus type 2 CKD Thyroid cancer Hypothyroidism Osteoarthritis Peptic ulcer disease GERD Esophagitis Osteoarthritis BPH Past Surgical History Surgical History Comment Right total knee replacement and umbilical hernia repair Past Social History Social History Comment Lives at home with Does not use tobacco or alcohol, illicit drug ROS ROS Could not be performed as the patient is intubated Exam Vitals: Vital Signs Date Time Temp Pulse Resp B/P (MAP) Pulse Ox O2 Delivery O2 Flow Rate FiO2 01/04/25 13:03 96/43 01/04/25 12:47 53 18 97 45 01/04/25 06:50 98.5 01/04/25 06:30 Mechanical Ventilator 01/01/25 13:43 0 General: General: Intubated and sedated HEENT: PERRLA, no icterus, pallor, lymphadenopathy, carotid bruit Respiratory system: Bilateral vesicular breath sounds decreased CVS: S1-S2 heard, no murmurs/rubs/gallop GI: Surgical incision intact with dressing present and drain with minimal output Neuro: Could not be elicited Extremities: Surgical scar present in the right knee, amputated left index finger at the distal phalanx, has a cyanosis of all the fingers and fingertips. Reddish bruise like discoloration present on bilateral lower extremities with 1+ edema Skin: Warm and dry Diagnostic Data Last Recorded Lab Results: 01/04/2530901/04/25309 Diagnostic Data: Laboratory Tests Test 01/03/25 19:00 01/04/25 05:28 01/04/25 05:51 01/04/25 09:00 Prothrombin Time 36.1 SECONDS (9.0-12.0) H INR International Normalized Ratio 4.0 INR #*H Activated Clotting Time 273 SEC (101-148) H APTT (Heparin Protocol) > 139 SECONDS (45-75) *H Activated Partial Thromboplast Time 128 SECONDS (22-32) *H Coagulation Comments Additional Plan Assessment: A 74-year-old male with PMH of CKD, hypothyroidism, PUD presented to the ED in view of abdominal pain and no bowel movement since last two weeks. Patient coded while in the ER with ROSC and intubation and transferred to the ICU. Patient underwent exploratory laparotomy on 01/01, and radial arterial thrombectomy on 01/03. ID is consulted for antibiotic management in view of perforated viscus and contamination. Plan: Perforated viscus with abdominal infection S/p exploratory laparotomy on 01/01 and 01/03 Right UE ischemia s/p radial arterial thrombectomy on 01/[address] Virk Patient seems to have severe lactic acidosis, requiring multiple vasopressors to maintain blood pressure. Patient underwent extensive bowel resection in view of ischemia Patient does not have SMA stenosis/occlusion to indicate the cause for ischemia. Patient seems to have poor prognosis in view of all the above and continued elevation of lactic acid indicating residual ischemic bowel Dr. Virk has discussed the same with the patient's about goals of therapy/comfort care measures. has requested some time to make an informed decision. We will continue the same antibiotics and wait for cultures/goals of care decision to make any changes. Disposition: Continue care in the ICU, ID we will continue to follow up with the patient, awaiting final cultures, pending goals of care decision Marco Lim MD Internal Medicine, PGY 2 Agree with above note. Patient seen and examined with Dr. Lopez. Unfortunately, he has extensive ischemic bowel despite lack of evidence for large vessel mesenteric arterial disease. Hypercoagulable state suspected. Lactate is markedly elevated, and he is not going to survive his current illness. is aware of per Dr. Virk. Date of Service: Jan 04, 2025 Billing Provider: GREG FLORETNINO MD, SIVA, RES Jan 04, 2025 14:01 SAMARIA GARZA MD Jan 04, 2025 18:10
--- NOTE | 2025-01-04 17:19 | PROGRESS NOTE ---
Daily Progress Note Providers to CC Patient seen and examined this morning, intubated on ventilator sedated ~ Central Line/PICC still needed: Yes Malone-Non Protocol Malone Indications Met/Not Met: F/C Indications Met Antibiotic Timeout Antibiotic Ordered?: Yes MRSA Education MRSA Education Provided to pt: Yes Subjective As above Objective Vital Signs Date Time Temp Pulse Resp B/P (MAP) Pulse Ox O2 Delivery O2 Flow Rate FiO2 01/04/25 13:03 96/43 01/04/25 13:00 18 45 01/04/25 13:00 48 Mechanical Ventilator 01/04/25 12:47 97 01/04/25 06:50 98.5 01/01/25 13:43 0 Vital signs, stable ,afebrile. Pulse Oximetry reflects adequate oxygenation, intubated sedated on ventilator FiO2 45% General: well developed, well nourished. Sedated, on ventilator, resting comfortably in the bed, in no acute distress . Skin: Warm, dry, no pallor, no rash or petechiae. HEENT: Atraumatic, normocephalic, EOMI, anicteric sclera B; pink conjunctiva; PERRLA, normal oropharynx, moist oral and nasal mucosa. Tympanic membrane , nose , throat clear. Neck: Trachea midline. Supple, full range of motion, no JVD, bruit , hepatojugular reflex , lymphadenopathy or masses, or other lesions Cardiac: Regular rhythm, regular rate no murmurs, rubs, or gallops. Normal S1 and S2, no S3 noticed. PMI is normal. Respiratory: Equal breath sounds bilaterally, no tachypnea; lungs clear to auscultation bilaterally, no wheezing ,rub or rales, or crackles. Chest wall is symmetric and without deformity. No signs of trauma. Chest wall is nontender. No signs of respiratory distress. Resonance is normal upon percussion bilaterally. Gastrointestinal: Abdomen symmetric, non-distended, soft, non-tender, normal bowel sounds x4 quadrant, normoactive, no hepatosplenomegaly , no masses , no bruit, no flank pain bilaterally. No voluntary guarding, rebound, or rigidity. No tenderness to percussion. No pulsatile masses. Equal femoral pulses. No Linn's sign or McBurney point tenderness. Back; no CVA tenderness bilaterally, no deformities. Neck and back are without deformity as well. No tenderness noted on palpation of the spinous processes. Spinous processes are midline. Cervical, thoracic, and lumbar paraspinal muscles are not tender and are without spasm. : normal external genitalia, without lesions, swelling, masses or tenderness. Musculoskeletal: Extremities, normal range of motion, non-tender, muscle strength 5/5 x 4. Negative Homans signs bilaterally on lower extremity. Distal pulses full symmetrical, no clubbing, cyanosis , edema. Neurological: Sedated on ventilator Psych: Sedated on ventilator Vascular: Good distal pulses, which are equal x4; capillary refill less than 2 seconds. Lymphatic, no lymphadenopathy. Result Diagram: 01/04/2530901/04/25309 Coagulation Studies Laboratory Tests Test 01/03/25 19:00 01/04/25 05:28 01/04/25 05:51 01/04/25 09:00 Prothrombin Time 36.1 SECONDS (9.0-12.0) H INR International Normalized Ratio 4.0 INR #*H Activated Clotting Time 273 SEC (101-148) H APTT (Heparin Protocol) > 139 SECONDS (45-75) *H Activated Partial Thromboplast Time 128 SECONDS (22-32) *H Coagulation Comments Problem\Assessment\Plan Assessment Status post cardiorespiratory arrest, Rosc achieved after CPR, and ACLS protocol History of peptic ulcer disease, esophagitis, GERD, in exacerbation Perforated viscus, small-bowel perforation, associated with peritonitis Status post exploratory laparotomy, small-bowel resection, colonic decompression Sepsis Diabetes mellitus type 2 poor control PVD, associated with ischemic changes right upper extremity Acute pancreatitis Chronic constipation in exacerbation Hyponatremia Acute renal failure Additional comorbidities, hypoalbuminemia, hepatic steatosis, BPH, bilateral pleural effusion trace, history of right knee TKA, history of abdominal surgery, chronic kidney disease, hypothyroidism, history of thyroid cancer, ventral hernia, hypoalbuminemia, hepatic steatosis, Altered level of consciousness Plan Correct electrolytes, IV fluids Hypo, hyperglycemia protocol Patient intubated, on ventilator FiO2 45 % IV antibiotics IV Protonix Antiemetics, pain control IV p.o. analgesics Dr. Virk manageing in the surgical conditions Was evaluated by virtual neurologist, recommendation to be implemented DVT gastropathy prophylaxis addressed Sepsis Screening Reassessment Date: Jan 04, 2025 Date of Service: Jan 04, 2025 Billing Provider: KAILYN GRIMES MD Common Visit Codes: [id number] INP/OBS CARE(HIGH) KAILYN GRIMES MD Jan 04, 2025 17:19
--- NOTE | 2025-01-04 19:50 | PROGRESS NOTE ---
Progress Note ID Providers to CC ~ Progress Note Progress Note: pt continues to deteriorate-discussed with SUN LEE MD Jan 04, 2025 19:50
== END 2025-01-04 13:30 | DRG 853 ==
LOC: ER 11:13 → CICU 2S 20:30
PROVIDERS: ADMIT Surgery; ATTEND Surgery
PROC: 05HY33Z Insertion of Infusion Device into Upper Vein, Percutaneous Approach (ICD-10-PCS; 2024-12-28)
PROC: 03HY32Z Insertion of Monitoring Device into Upper Artery, Percutaneous Approach (ICD-10-PCS; 2025-01-01)
PROC: 0D9E30Z Drainage of Large Intestine with Drainage Device, Percutaneous Approach (ICD-10-PCS; 2025-01-01)
PROC: 5A12012 Performance of Cardiac Output, Single, Manual (ICD-10-PCS; 2025-01-01)
PROC: 0DB80ZZ Excision of Small Intestine, Open Approach (ICD-10-PCS; principal; 2025-01-01 17:18)
PROC: 4A00X4Z Measurement of Central Nervous Electrical Activity, External Approach (ICD-10-PCS; 2025-01-02)
PROC: B4201ZZ Computerized Tomography (CT Scan) of Abdominal Aorta using Low Osmolar Contrast (ICD-10-PCS; 2025-01-02)
PROC: B4241ZZ Computerized Tomography (CT Scan) of Superior Mesenteric Artery using Low Osmolar Contrast (ICD-10-PCS; 2025-01-02)
PROC: B4281ZZ Computerized Tomography (CT Scan) of Bilateral Renal Arteries using Low Osmolar Contrast (ICD-10-PCS; 2025-01-02)
PROC: B42C1ZZ Computerized Tomography (CT Scan) of Pelvic Arteries using Low Osmolar Contrast (ICD-10-PCS; 2025-01-02)
PROC: B42H1ZZ Computerized Tomography (CT Scan) of Bilateral Lower Extremity Arteries using Low Osmolar Contrast (ICD-10-PCS; 2025-01-02)
PROC: B4211ZZ Computerized Tomography (CT Scan) of Celiac Artery using Low Osmolar Contrast (ICD-10-PCS; 2025-01-02)
PROC: B42H1ZZ Computerized Tomography (CT Scan) of Bilateral Lower Extremity Arteries using Low Osmolar Contrast (ICD-10-PCS; 2025-01-02)
PROC: 0DB80ZZ Excision of Small Intestine, Open Approach (ICD-10-PCS; 2025-01-03)
PROC: 03CB0ZZ Extirpation of Matter from Right Radial Artery, Open Approach (ICD-10-PCS; 2025-01-03)
PROC: 30233N1 Transfusion of Nonautologous Red Blood Cells into Peripheral Vein, Percutaneous Approach (ICD-10-PCS; 2025-01-04)
DX: A41.9 Sepsis, unspecified organism (principal); E11.10 Type 2 diabetes mellitus with ketoacidosis without coma; J96.90 Respiratory failure, unspecified, unspecified whether with hypoxia or hypercapnia; K63.1 Perforation of intestine (nontraumatic); K85.90 Acute pancreatitis without necrosis or infection, unspecified; K65.9 Peritonitis, unspecified; E87.1 Hypo-osmolality and hyponatremia; K55.9 Vascular disorder of intestine, unspecified; K59.39 Other megacolon; N17.9 Acute kidney failure, unspecified; K59.09 Other constipation; I12.9 Hypertensive chronic kidney disease with stage 1 through stage 4 chronic kidney disease, or unspecified chronic kidney disease; E11.51 Type 2 diabetes mellitus with diabetic peripheral angiopathy without gangrene; I46.9 Cardiac arrest, cause unspecified; E11.22 Type 2 diabetes mellitus with diabetic chronic kidney disease; N18.9 Chronic kidney disease, unspecified; N40.0 Benign prostatic hyperplasia without lower urinary tract symptoms; K27.9 Peptic ulcer, site unspecified, unspecified as acute or chronic, without hemorrhage or perforation; K21.00 Gastro-esophageal reflux disease with esophagitis, without bleeding; K76.0 Fatty (change of) liver, not elsewhere classified; E88.09 Other disorders of plasma-protein metabolism, not elsewhere classified; E03.9 Hypothyroidism, unspecified; Z96.651 Presence of right artificial knee joint; Z87.11 Personal history of peptic ulcer disease; Z85.850 Personal history of malignant neoplasm of thyroid; Z87.891 Personal history of nicotine dependence
CPT/HCPCS: 36415; 36430; 36600; 70450; 71045; 71275; 74176; 75635; 80047; 80048; 80053; 82550; 82803; 82810; 82948; 83605; 83690; 83735; 83880; 84100; 84132; 84145; 84443; 84484; 85007; 85018; 85025; 85027; 85347; 85610; 85730; 86885; 86900; 86901; 86920; 87040; 87070; 87075; 87077; 87081; 92950; 93005; 93306; 93926; 93931; 94002; 94003; 94760; 95720; 96361; 96365; 96375; 99291; 99292; A4618; A6213; A6253; A6258; A6402; A6449; A7000; A9900; C1751; C1758; G0378; J0153; J0169; J0282; J0696; J1644; J1720; J1815; J2248; J2250; J2312; J2470; J2543; J2704; J3010; J3480; J3490; J7030; J7040; J7050; J7070; J7120; J7121; P9016; P9045; Q9967